=== PATIENT | female | born 1955 | race Caucasian/White ===

== ENCOUNTER 2017-08-04 19:15 | Emergency (ER) | payer MEDICARE ==
[2017-08-04] MEDS ORDERED: PENICILLIN G BENZATHINE 1.2 MILLION UNIT/2 ML DISP.SYRIN IM ONE (19:58)
[2017-08-04] MEDS ORDERED: CARVEDILOL 6.25 MG TABLET PO ONE (19:58)
[2017-08-04] MEDS ORDERED: HYDROCODONE/ACETAMINOPHEN 5-325 MG (6 TAB/ER DISP) PO PRN (20:01)
--- NOTE | 2017-08-04 20:02 | ER Document Report ---
HPI - HPI Patient complains to provider of: Sore throat, nasal congestion Onset: Other - 3 days Onset/Duration: Persistent Quality of pain: Achy Pain Level: 5 Context: Patient presents complaining of sore throat with postnasal drip. Patient does report sinus congestion. Patient denies any fever. Patient does complain of some right-sided ear pain. Patient states she does have a history of hypertension but has not been taking her blood pressure medication for the past several days as she recently had her blood pressure medication adjusted and she does not like the new medication. Patient denies any chest pain headache back pain or visual disturbances. Associated Symptoms: Earache, Rhinnorhea, Sore throat. denies: Chest pain, Headache Exacerbated by: Denies Relieved by: Denies Similar symptoms previously: Yes Recently seen / treated by doctor: No - ROS ROS below otherwise negative: Yes Systems Reviewed and Negative: Yes All other systems reviewed and negative - CONSTITUTIONAL Constitutional: DENIES: Fever, Chills - EENT EENT: REPORTS: Sore Throat, Ear Pain. DENIES: Eye problems - NEURO Neurology: DENIES: Headache - CARDIOVASCULAR Cardiovascular: DENIES: Chest pain - RESPIRATORY Respiratory: DENIES: Trouble Breathing - GASTROINTESTINAL Gastrointestinal: DENIES: Patient vomiting - MUSCULOSKELETAL Musculoskeletal: DENIES: Back Pain - DERM Skin Color: Normal Skin Problems: None Past Medical History - General Information source: Patient - Social History Smoking Status: Never Smoker Chew tobacco use (# tins/day): No Frequency of alcohol use: None Drug Abuse: None Occupation: None Lives with: Family Family History: Reviewed & Not Pertinent Patient has suicidal ideation: No Patient has homicidal ideation: No - Past Medical History Cardiac Medical History: Reports: Hx Hypertension Pulmonary Medical History: Reports: Hx Asthma, Hx COPD Endocrine Medical History: Reports: Hx Diabetes Mellitus Type 2 Renal/ Medical History: Denies: Hx Peritoneal Dialysis Past Surgical History: Reports: Hx Appendectomy, Hx Breast Surgery - biopsy, Hx Tonsillectomy Vertical Provider Document - CONSTITUTIONAL Agree With Documented VS: Yes Exam Limitations: No Limitations General Appearance: WD/WN, No Apparent Distress - INFECTION CONTROL TRAVEL OUTSIDE OF THE [place] IN LAST 30 DAYS: No - HEENT HEENT: Atraumatic, Normocephalic, Pharyngeal Exudate, Pharyngeal Tenderness, Pharyngeal Erythema. negative: Tympanic Membrane Red, Tympanic Membrane Bulging - NECK Neck: Lymphadenopathy-Left, Lymphadenopathy-Right - RESPIRATORY Respiratory: Breath Sounds Normal, No Respiratory Distress, Chest Non-Tender O2 Sat by Pulse Oximetry: 90 - CARDIOVASCULAR Cardiovascular: Regular Rate, Regular Rhythm, No Murmur - BACK Back: Normal Inspection - MUSCULOSKELETAL/EXTREMETIES Musculoskeletal/Extremeties: MAEW - NEURO Level of Consciousness: Awake, Alert, Appropriate Motor/Sensory: No Motor Deficit - DERM Integumentary: Warm, Dry, No Rash Course - Re-evaluation Re-evalutation: 08/04/17 20:00 The patient has been informed that they have hypertension based on a blood pressure reading in the emergency department. I recommend that patient call the primary care provider listed on their discharge instructions or a physician of their choice by this week to arrange follow-up for further evaluation of possible hypertension. Patient does continue hypertensive at discharge although is asymptomatic. Discussed with patient at length importance of compliance with her medication regimen. Patient advised that she can follow-up with primary doctor to have her medications adjusted if she is not liking the side effect profile of the medicines that she is taking. Patient is not symptomatic with her hypertension at this time, additional testing will be deferred. Patient with symptoms concerning for tonsillitis. No concern for tonsillar abscess or potential airway compromise at this time. - Vital Signs Vital signs: Temp Pulse Resp BP Pulse Ox 97.8 F 93 20 194/106 H 90 L 08/04/17 19:21 08/04/17 19:21 08/04/17 19:21 08/04/17 19:21 08/04/17 19:21 Discharge - Discharge Clinical Impression: Tonsillitis, Nasal congestion, Hx of essential hypertension Condition: Stable Disposition: HOME, SELF-CARE Instructions: Antibiotic Shot ([facility]), Oral Narcotic Medication ([facility]), Tonsillitis ([facility]) Additional Instructions: Return immediately for any new or worsening symptoms Followup with your primary care provider, call tomorrow to make a followup appointment Take your blood pressure medication at home as prescribed. Take [id number] Coricidin HBP to help with congestion symptoms use over- the-counter saline nasal spray to help with congestion as well. Forms: Elevated Blood Pressure Referrals: [facility] [Provider Group] - Follow up tomorrow
[2017-08-04 20:29] VITALS: BP 204/85
== END 2017-08-04 20:29 | disposition home or self-care (01) ==
LOC: ER 19:15
DX: J03.90 Acute tonsillitis, unspecified (principal); R09.81 Nasal congestion; I10 Essential (primary) hypertension; J02.9 Acute pharyngitis, unspecified; R09.82 Postnasal drip; Z79.899 Other long term (current) drug therapy
CPT/HCPCS: 99283; A9270 ×2; J0561

== ENCOUNTER 2018-02-14 15:31 | Inpatient (IN) | payer MEDICARE ==
--- NOTE | 2018-02-14 16:39 | ER Document Report ---
ED Medical Screen (RME) - General Chief Complaint: Chest Tightness Stated Complaint: DIFFICULTY BREATHING/CHEST PAIN Time Seen by Provider: 02/14/18 16:31 Notes: Patient says that she has been having difficulty breathing for the past couple of days. She has had a slight cough. Says she cannot lay down because of the shortness of breath. Has a history of COPD and asthma, but has not had a flare of that condition for at least 3 years. She does have an inhaler, but needs to get it refilled. She has had some pressure feeling in the substernal chest region. No vomiting or diarrhea. Has not had any fever. Hysterectomy and cholecystectomy. Lungs no wheezes heard. Rales heard. +1-+2 pitting edema pretibial. TRAVEL OUTSIDE OF THE [place] IN LAST 30 DAYS: No - Related Data Allergies/Adverse Reactions: aspirin Allergy (Verified 02/14/18 15:31) Iodinated Contrast- Oral and IV Dye Allergy (Verified 02/14/18 15:31) Past Medical History - Social History Chew tobacco use (# tins/day): No Frequency of alcohol use: None Drug Abuse: None - Past Medical History Cardiac Medical History: Reports: Hx Hypertension Pulmonary Medical History: Reports: Hx Asthma, Hx COPD Endocrine Medical History: Reports: Hx Diabetes Mellitus Type 2 - under control w/o medication Renal/ Medical History: Denies: Hx Peritoneal Dialysis Past Surgical History: Reports: Hx Appendectomy, Hx Breast Surgery - biopsy, Hx Cholecystectomy, Hx Hysterectomy, Hx Tonsillectomy Physical Exam - Vital signs Vitals: Temp Pulse Resp BP Pulse Ox 98.2 F 82 28 H 215/103 H 84 L 02/14/18 15:57 02/14/18 15:57 02/14/18 15:57 02/14/18 15:57 02/14/18 15:57 Course - Vital Signs Vital signs: Temp Pulse Resp BP Pulse Ox 98.2 F 80 22 H 198/94 H 95 02/14/18 15:57 02/14/18 16:23 02/14/18 16:23 02/14/18 16:23 02/14/18 16:23 Doctor's Discharge - Discharge Referrals: MELVI RUTH [Primary Care Provider] - Follow up as needed
[2018-02-14] MEDS ORDERED: IPRATROPIUM/ALBUTEROL 0.5-2.5 MG/3 ML AMPUL NEB ONE (16:49)
--- NOTE | 2018-02-14 16:56 | RADIOLOGY REPORT (SQ) ---
EXAM DESCRIPTION: CHEST 2 VIEWS COMPLETED DATE/TIME: 02/14/2018 4:47 pm REASON FOR STUDY: Shortness of breath COMPARISON: None. EXAM PARAMETERS: NUMBER OF VIEWS: two views TECHNIQUE: Digital Frontal and Lateral radiographic views of the chest acquired. RADIATION DOSE: NA LIMITATIONS: none FINDINGS: LUNGS AND PLEURA: Prominent vascular and interstitial markings. Small right pleural effus ion -possible small left. MEDIASTINUM AND HILAR STRUCTURES: No masses or contour abnormalities. HEART AND VASCULAR STRUCTURES: Mild cardiomegaly BONES: No acute findings. HARDWARE: None in the chest. OTHER: No other significant finding. IMPRESSION: Congestive heart failure. TECHNICAL DOCUMENTATION: JOB ID: [id number] [employer]- All Rights Reserved Reading location - IP/workstation name: [email or web address]
[2018-02-14 17:12] LABS: ABSOLUTE BASOPHILS # (AUTO) 0.1 10^3/uL (0.0-0.2); ABSOLUTE EOSINOPHILS # (AUTO) 0.1 10^3/uL (0.0-0.6); ABSOLUTE LYMPHOCYTES (AUTO) 1.9 10^3/uL (0.5-4.7); ABSOLUTE MONOCYTES (AUTO) 0.6 10^3/uL (0.1-1.4); ABSOLUTE NEUT (AUTO) 4.4 10^3/uL (1.7-8.2); BASOPHILS % (AUTO) 0.8 % (0-2); EOSINOPHILS % (AUTO) 1.7 % (0-6); HEMATOCRIT 49.7 % (36.0-47.0); HEMOGLOBIN 16.7 g/dL (12.0-15.5); LYMPHOCYTES % (AUTO) 26.9 % (13-45); MEAN CORPUSCULAR HEMOGLOBIN 28.4 pg (27.0-33.4); MEAN CORPUSCULAR HGB CONC 33.6 g/dL (32.0-36.0); MEAN CORPUSCULAR VOLUME 84 fl (80-97); MONOCYTES % (AUTO) 7.9 % (3-13); PLATELET COUNT 157 10^3/uL (150-450); RED BLOOD COUNT 5.89 10^6/uL (3.72-5.28); RED CELL DISTRIBUTION WIDTH 14.8 % (11.5-14.0); SEGMENTED NEUTROPHILS % (AUTO) 62.7 % (42-78); TOTAL CELLS COUNTED % (AUTO) 100 %
[2018-02-14 17:19] LABS: ALANINE AMINOTRANSFERASE 26 U/L (9-52); ALKALINE PHOSPHATASE 86 U/L (38-126); ANION GAP 13 (5-19); ASPARTATE AMINO TRANSFERASE 24 U/L (14-36); BILIRUBIN,DIRECT 0.3 mg/dL (0.0-0.4); BILIRUBIN,TOTAL 0.5 mg/dL (0.2-1.3); BLOOD UREA NITROGEN 20 mg/dL (7-20); CALCIUM 9.9 mg/dL (8.4-10.2); CARBON DIOXIDE 30 mmol/L (22-30); CHLORIDE 102 mmol/L (98-107); GLUCOSE 136 mg/dL (75-110); POTASSIUM 4.1 mmol/L (3.6-5.0); SODIUM 144.7 mmol/L (137-145); TOTAL PROTEIN 7.2 g/dL (6.3-8.2)
[2018-02-14 17:31] LABS: CREATINE KINASE MB 1.22 ng/mL (<4.55)
--- NOTE | 2018-02-14 17:39 | ER Document Report ---
ED Cardiac - General Chief Complaint: Chest Tightness Stated Complaint: DIFFICULTY BREATHING/CHEST PAIN Time Seen by Provider: 02/14/18 16:31 Information source: Patient Notes: Patient is a 62-year-old female that presents today stating over the last 2 days she has had some shortness of breath with exertion. She states she has positive orthopnea. She states some very mild 2 out of 10 nonradiating chest pressure when she walks. Patient has a history of COPD but has not been on oxygen "for years". Patient was satting 84% upon arrival. Patient denies any calf pain or leg swelling. She states she does take a small dose of Lasix daily but states she has never been diagnosed with congestive heart failure. Patient denies any cough, fevers, and states no travel greater than 25 days ago. TRAVEL OUTSIDE OF THE [place] IN LAST 30 DAYS: No - HPI Patient complains to provider of: Shortness of breath Was the onset of pain: Gradual Is the pain a: New problem Chest pain location: Substernal Quality of pain: Other - See above Chest pain radiation location: None Severity now: None Severity at worst: Mild Pain level currently: Denies Chest pain precipitating factors: Physical Exertion Associated symptoms: Other - See above Exacerbated by: Denies Relieved by: Nothing Similar symptoms previously: No Recently seen / treated by doctor: No - Related Data Allergies/Adverse Reactions: aspirin Allergy (Verified 02/14/18 15:31) Iodinated Contrast- Oral and IV Dye Allergy (Verified 02/14/18 15:31) Past Medical History - General Information source: Patient - Social History Smoking Status: Former Smoker Cigarette use (# per day): No Chew tobacco use (# tins/day): No Smoking Education Provided: No Frequency of alcohol use: None Drug Abuse: None Family History: Reviewed & Not Pertinent Patient has suicidal ideation: No Patient has homicidal ideation: No - Past Medical History Cardiac Medical History: Reports: Hx Hypertension Pulmonary Medical History: Reports: Hx Asthma, Hx COPD Endocrine Medical History: Reports: Hx Diabetes Mellitus Type 2 - under control w/o medication Renal/ Medical History: Denies: Hx Peritoneal Dialysis Past Surgical History: Reports: Hx Appendectomy, Hx Breast Surgery - biopsy, Hx Cholecystectomy, Hx Hysterectomy, Hx Tonsillectomy Review of Systems - Review of Systems Constitutional: denies: Fever EENT: denies: Eye discharge, Nose discharge Cardiovascular: denies: Palpitations, Dizziness, Lightheaded Respiratory: Short of breath. denies: Hemoptysis, Wheezing Gastrointestinal: denies: Vomiting Genitourinary: denies: Dysuria Musculoskeletal: denies: Leg swelling Skin: Other - no hives. denies: Rash Neurological/Psychological: Other - no slurred speech -: Yes All other systems reviewed and negative Physical Exam - Vital signs Vitals: Temp Pulse Resp BP Pulse Ox 98.2 F 82 28 H 215/103 H 84 L 02/14/18 15:57 02/14/18 15:57 02/14/18 15:57 02/14/18 15:57 02/14/18 15:57 Notes: Reviewed vital signs and nursing note as charted by RN. CONSTITUTIONAL: Alert and oriented and responds appropriately to questions. Well -appearing; well-nourished HEAD: Normocephalic; atraumatic EYES: PERRL; Conjunctivae clear, sclerae non-icteric ENT: Normal nose; no rhinorrhea NECK: Supple without meningismus; non-tender; no cervical lymphadenopathy, no masses CARD: Regular rate and rhythm; no murmurs, no clicks, no rubs, no gallops; symmetric distal pulses RESP: Normal chest excursion without splinting or tachypnea; breath sounds clear and equal bilaterally; bilateral rales noted ABD/GI: Normal bowel sounds; non-distended; soft, non-tender BACK: The back appears normal and is non-tender to palpation EXT: Normal ROM in all joints; non-tender to palpation; no edema SKIN: Normal color for age and race; no acute lesions noted NEURO: Moves all extremities equally; Motor and sensory function intact PSYCH: The patient's mood and manner are appropriate. Grooming and personal hygiene are appropriate. Course - Re-evaluation Re-evalutation: 02/14/18 17:39 Given the above history and physical examination, we will obtain basic labs, cardiac labs, BNP, x-ray of the chest, and reassess. Patient was provided an albuterol inhaler prior to my arrival. I do not auscultate any wheezing. I do auscultate Dayanna. Patient has no calf pain or leg swelling. Only some chest discomfort when she walks. Initial oxygen saturation is recorded. I do believe pulmonary embolism and dissection to be unlikely. 02/14/18 18:08 Labs as recorded. BNP is recorded. X-ray is recorded. Given the above history and physical examination, I do believe that the patient most likely requires admission with IV Lasix. - Vital Signs Vital signs: Temp Pulse Resp BP Pulse Ox 98.2 F 80 22 H 198/94 H 95 02/14/18 15:57 02/14/18 16:23 02/14/18 16:23 02/14/18 16:23 02/14/18 16:23 - Laboratory Result Diagrams: 02/14/18 16:55 02/14/18 16:55 Laboratory results interpreted by me: 02/14/18 02/14/18 02/14/18 16:55 16:55 16:55 RBC 5.89 H Hgb 16.7 H Hct 49.7 H RDW 14.8 H Glucose 136 H NT-Pro-B Natriuret Pep 906 H Discharge - Discharge Clinical Impression: Hypoxia Dyspnea Qualifiers: Dyspnea type: unspecified Qualified Code(s): R06.00 - Dyspnea, unspecified Acute congestive heart failure Qualifiers: Heart failure type: unspecified Qualified Code(s): I50.9 - Heart failure, unspecified Condition: Fair Disposition: ADMITTED INPATIENT Admitting Provider: Hospitalist Unit Admitted: Telemetry Referrals: MELVI RUTH [Primary Care Provider] - Follow up as needed
[2018-02-14 17:54] LABS: TROPONIN I 0.041 ng/mL
[2018-02-14] MEDS ORDERED: FUROSEMIDE INJ/PF 40 MG/4 ML SDV IV ONE (18:11)
[2018-02-14] MEDS ORDERED: DEXTROSE 50%-WATER 25 GM/50 ML DISP.SYRIN IV PRN ×2 (18:30)
[2018-02-14] MEDS ORDERED: GLUCAGON,HUMAN RECOMB 1 MG INJ IM PRN (18:30)
[2018-02-14] MEDS ORDERED: DEXTROSE 40% GEL 15 GM TUBE PO PRN ×2 (18:30)
--- NOTE | 2018-02-14 18:53 | PDOC H&P ---
History of Present Illness Admission Date/PCP: 02/14/18 18:19 MELVI RUTH History of Present Illness: REMINGTON SILVA is a 62 year old female with history of hypertension and diabetes, neither which she takes anything for, who had sudden onset of shortness of breath about 3 days ago. She denies any chest pain. She says that she has been taken Lasix for a while because she gets swelling in her legs but she does not know what the source of the swelling is. She has never had a heart attack that she knows of. She has never had a stress test or cardiac catheterization or any heart surgery. She was unable to lay down flat and had to sit propped up in order to sleep. When she came to the emergency department her SPO2 was 87% on room air. Her BMP was a little elevated and she had findings of pulmonary edema on her chest x-ray. She has not been running a fever. She has not had a cough. She has also been very hypertensive with a systolic near 200 on her initial presentation. Past Medical History Cardiac Medical History: Reports: Hypertension Pulmonary Medical History: Reports: Asthma, Chronic Obstructive Pulmonary Disease (COPD) Endocrine Medical History: Reports: Diabetes Mellitus Type 2 - under control w/ o medication Past Surgical History Past Surgical History: Reports: Appendectomy, Cholecystectomy, Hysterectomy, Tonsillectomy Social History Information Source: Patient Lives with: Alone Smoking Status: Former Smoker Frequency of Alcohol Use: Rare Hx Recreational Drug Use: No Family History Family History: Reviewed & Not Pertinent Parental Family History Reviewed: Yes - Non-contributory Children Family History Reviewed: Yes - Noncontributory Sibling(s) Family History Reviewed.: Yes - Noncontributory Medication/Allergy Allergies/Adverse Reactions: aspirin Allergy (Verified 02/14/18 15:31) Iodinated Contrast- Oral and IV Dye Allergy (Verified 02/14/18 15:31) Review of Systems All systems: reviewed and no additional remarkable complaints except as stated - 10 point review of systems was conducted with the patient was negative except as noted in the HPI Physical Exam Vital Signs: Temp Pulse Resp BP Pulse Ox 98.2 F 80 22 H 198/94 H 95 02/14/18 15:57 02/14/18 16:23 02/14/18 16:23 02/14/18 16:23 02/14/18 16:23 General appearance: PRESENT: no acute distress, cooperative, morbidly obese Head exam: PRESENT: atraumatic, normocephalic Eye exam: PRESENT: conjunctiva pink, EOMI, PERRLA. ABSENT: scleral icterus Ear exam: PRESENT: normal external ear exam Mouth exam: PRESENT: moist, neck supple Throat exam: ABSENT: tonsillar erythema, tonsillar exudate, tonsillogmegaly Neck exam: PRESENT: full ROM. ABSENT: carotid bruit, JVD - Difficult to tell due to her body habitus, lymphadenopathy, tenderness, thyromegaly Respiratory exam: PRESENT: crackles - Bibasilar, unlabored. ABSENT: accessory muscle use, chest wall tenderness, prolonged expiratory phas, rhonchi, tachypnea , wheezes Cardiovascular exam: PRESENT: RRR. ABSENT: diastolic murmur, systolic murmur Pulses: ABSENT: normal carotid pulses, normal radial pulses Vascular exam: PRESENT: normal capillary refill GI/Abdominal exam: PRESENT: normal bowel sounds, soft. ABSENT: ascites, guarding, mass, rebound, tenderness Extremities exam: PRESENT: +1 edema - Pretibial areas bilaterally. ABSENT: clubbing, pedal edema Musculoskeletal exam: PRESENT: ambulatory, normal inspection. ABSENT: deformity Neurological exam: PRESENT: alert, awake, oriented to person, oriented to place , oriented to time, CN II-XII grossly intact Psychiatric exam: PRESENT: appropriate affect, normal mood Skin exam: PRESENT: dry, warm Results Impressions: Chest X-Ray 02/14/18 16:37 IMPRESSION: Congestive heart failure. Assessment & Plan - Diagnosis (1) Acute congestive heart failure Qualifiers: Heart failure type: unspecified Qualified Code(s): I50.9 - Heart failure, unspecified Is this a current diagnosis for this admission?: Yes Plan: She has no prior history. We will going to put her on some IV Lasix. We will put her on an AILYN inhibitor and a beta-abigail. We will get an echocardiogram. We will trend her troponins. We will keep on a cardiac rn. Supplemental O2 as needed to keep her SPO2 greater than 90%. She would probably benefit from a stress test as well once her acute issues are somewhat more resolved. Depending on what we find, she may need a cardiology consultation. (2) Malignant hypertensive urgency Is this a current diagnosis for this admission?: Yes Plan: Were giving her a couple of different blood pressure medications to try to get her pressure down some. I suspect she has had uncontrolled pressure for a while. This alone could be the reason for her acute heart failure. (3) Acute hypoxemic respiratory failure Is this a current diagnosis for this admission?: Yes Plan: Secondary to #1. Treatment as noted above. - Time Time Spent: 50 to 70 Minutes - Inpatient Certification Based on my medical assessment, after consideration of the patient's comorbidities, presenting symptoms, or acuity I expect that the services needed warrant INPATIENT care.: Yes I certify that my determination is in accordance with my understanding of Medicare's requirements for reasonable and necessary INPATIENT services [42 CFR 412.3e].: Yes Medical Necessity: Need Close Monitoring Due to Risk of Patient Decompensation, Need For Continuous Telemetry Monitoring, Risk of Diagnosis Which Will Require Inpatient Eval/Care/Monitoring
[2018-02-14] MEDS: NITROGLYCERIN 2% OINTMENT 1 GM PACKET TP SCH (20:30)
[2018-02-14] MEDS: CARVEDILOL 6.25 MG TABLET PO SCH ×2 (20:31→22:29)
[2018-02-14] MEDS: LISINOPRIL 10 MG TABLET PO SCH (20:31)
[2018-02-14 21:06] LABS: APPEARANCE,URINE CLEAR; BILIRUBIN,URINE NEGATIVE (NEGATIVE); COLOR,URINE COLORLESS; GLUCOSE, URINE NEGATIVE (NEGATIVE); KETONES,URINE NEGATIVE (NEGATIVE); LEUKOCYTE ESTERASE,URINE TRACE (NEGATIVE); NITRITE,URINE NEGATIVE (NEGATIVE); PROTEIN,URINE NEGATIVE (NEGATIVE); URINE SPECIFIC GRAVITY 1.004; UROBILINOGEN,URINE NEGATIVE mg/dL (<2.0)
[2018-02-14] MEDS: FUROSEMIDE INJ/PF 40 MG/4 ML SDV IV SCH (21:44)
--- NOTE | 2018-02-15 00:18 | EKG REPORT ---
SEVERITY:- BORDERLINE ECG - SINUS RHYTHM BORDERLINE REPOL ABNORMALITY, DIFFUSE LEADS BORDERLINE PROLONGED QT INTERVAL : Confirmed by: Bouchra Mae MD 15-Feb-2018 00:17:37
[2018-02-15] MEDS: NITROGLYCERIN 2% OINTMENT 1 GM PACKET TP SCH ×4 (02:12→17:20)
[2018-02-15 05:54] LABS: HEMATOCRIT 44.7 % (36.0-47.0); HEMOGLOBIN 15.1 g/dL (12.0-15.5); MEAN CORPUSCULAR HEMOGLOBIN 28.6 pg (27.0-33.4); MEAN CORPUSCULAR HGB CONC 33.7 g/dL (32.0-36.0); MEAN CORPUSCULAR VOLUME 85 fl (80-97); PLATELET COUNT 147 10^3/uL (150-450); RED BLOOD COUNT 5.28 10^6/uL (3.72-5.28); WHITE BLOOD COUNT 6.4 10^3/uL (4.0-10.5)
[2018-02-15 06:15] LABS: ANION GAP 9 (5-19); BLOOD UREA NITROGEN 21 mg/dL (7-20); CALCIUM 9.3 mg/dL (8.4-10.2); CARBON DIOXIDE 39 mmol/L (22-30); CHLORIDE 97 mmol/L (98-107); GLUCOSE 160 mg/dL (75-110); POTASSIUM 3.7 mmol/L (3.6-5.0); SODIUM 144.6 mmol/L (137-145)
[2018-02-15] MEDS: LANSOPRAZOLE 30 MG TAB.RAP.DR PO SCH (06:38)
[2018-02-15] MEDS: INSULIN REG, HUMAN 100 UNIT/ML 3 ML VIAL (PYX) SUBCUT PRN ×3 (07:51→21:39)
[2018-02-15] MEDS: LISINOPRIL 10 MG TABLET PO SCH (09:14)
[2018-02-15] MEDS: ENOXAPARIN SODIUM INJ 40 MG/0.4 ML DISP.SYRIN SUBCUT SCH (09:14)
[2018-02-15] MEDS: CARVEDILOL 6.25 MG TABLET PO SCH ×2 (09:14→21:41)
[2018-02-15] MEDS: FUROSEMIDE INJ/PF 40 MG/4 ML SDV IV SCH ×2 (09:14→21:42)
[2018-02-15 11:33] LABS: TROPONIN I 0.028 ng/mL
[2018-02-15] MEDS: ACETAMINOPHEN 325 MG TABLET PO PRN ×2 (17:41→21:41)
--- NOTE | 2018-02-15 19:08 | PDOC PROGRESS REPORT ---
Subjective Progress Note for:: 02/15/18 Subjective:: No adverse events overnight. No new complaints. Says her breathing feels better. She says she has not had her echocardiogram yet. No chest pain. No palpitations. Reason For Visit: HEART FAILURE Physical Exam Vital Signs: Temp Pulse Resp BP Pulse Ox 97.6 F 61 20 129/65 H 92 02/15/18 11:13 02/15/18 14:00 02/15/18 11:13 02/15/18 11:13 02/15/18 17:55 Pulse Oximeter Continuous Start: 02/14/18 18: 32 Freq: RTQ4 Status: Active Document 02/15/18 17:55 HCR (Rec: 02/15/18 17:55 HCR [id number]) Pulse Oximetry Assessment Oxygen Saturation (92-100) 92 Oxygen Delivery Method Room Air Fraction of Inspired Oxygen (FIO2) 21 Equipment Usage Equipment Standby Continuous SpO2 Machine # 8 Intake & Output 02/14/18 02/15/18 02/16/18 06:59 06:59 06:59 Intake Total 1734 Balance 1734 Weight 87.9 kg General appearance: PRESENT: no acute distress, cooperative, disheveled, morbidly obese Respiratory exam: PRESENT: accessory muscle use, decreased breath sounds, unlabored. ABSENT: rales, rhonchi, wheezes Cardiovascular exam: PRESENT: RRR. ABSENT: systolic murmur GI/Abdominal exam: PRESENT: normal bowel sounds, soft. ABSENT: guarding, rebound, tenderness Extremities exam: PRESENT: pedal edema, +1 edema Musculoskeletal exam: PRESENT: ambulatory, normal inspection. ABSENT: deformity Neurological exam: PRESENT: alert, awake, oriented to person, oriented to place , oriented to time Psychiatric exam: PRESENT: appropriate affect, normal mood Skin exam: PRESENT: dry, warm Results Laboratory Results: 02/15/18 05:03 02/15/18 05:03 02/14/18 02/15/18 02/15/18 20:50 05:03 05:03 WBC 6.4 RBC 5.28 Hgb 15.1 Hct 44.7 MCV 85 MCH 28.6 MCHC 33.7 RDW 15.0 H Plt Count 147 L Sodium 144.6 Potassium 3.7 Chloride 97 L Carbon Dioxide 39 H Anion Gap 9 BUN 21 H Creatinine 0.72 Est GFR ( Amer) > 60 Est GFR (Non-Af Amer) > 60 Glucose 160 H Calcium 9.3 Urine Color COLORLESS Urine Appearance CLEAR Urine pH 5.0 Ur Specific Fajardo 1.004 Urine Protein NEGATIVE Urine Glucose (UA) NEGATIVE Urine Ketones NEGATIVE Urine Blood SMALL H Urine Nitrite NEGATIVE Ur Leukocyte Esterase TRACE H Urine WBC (Auto) 5 Urine RBC (Auto) 1 02/14/18 02/15/18 02/15/18 22:49 05:03 10:45 Troponin I 0.052 0.037 0.028 NT-Pro-B Natriuret Pep 684 Impressions: Chest X-Ray 02/14/18 16:37 IMPRESSION: Congestive heart failure. Assessment & Plan - Diagnosis (1) Acute congestive heart failure Qualifiers: Heart failure type: unspecified Qualified Code(s): I50.9 - Heart failure, unspecified Is this a current diagnosis for this admission?: Yes Plan: She has no prior history. Echocardiogram is pending. Responding well to IV Lasix. Troponins have been negative. Depending on the results of the echocardiogram, she may benefit from a stress test before she leaves the hospital. She is on a beta-abigail and AILYN inhibitor. (2) Malignant hypertensive urgency Is this a current diagnosis for this admission?: Yes Plan: Blood pressure has improved medical therapy. (3) Acute hypoxemic respiratory failure Is this a current diagnosis for this admission?: Yes Plan: Secondary to #1. Treatment as noted above. - Time Time Spent with patient: 15-24 minutes
[2018-02-16] MEDS: NITROGLYCERIN 2% OINTMENT 1 GM PACKET TP SCH ×5 (02:17→23:50)
[2018-02-16 06:07] LABS: HEMOGLOBIN 14.6 g/dL (12.0-15.5); MEAN CORPUSCULAR HEMOGLOBIN 28.3 pg (27.0-33.4); MEAN CORPUSCULAR HGB CONC 33.3 g/dL (32.0-36.0); MEAN CORPUSCULAR VOLUME 85 fl (80-97); PLATELET COUNT 142 10^3/uL (150-450); RED BLOOD COUNT 5.16 10^6/uL (3.72-5.28); RED CELL DISTRIBUTION WIDTH 15.1 % (11.5-14.0); WHITE BLOOD COUNT 6.4 10^3/uL (4.0-10.5)
[2018-02-16] MEDS: LANSOPRAZOLE 30 MG TAB.RAP.DR PO SCH (06:35)
[2018-02-16 06:40] LABS: ANION GAP 11 (5-19); BLOOD UREA NITROGEN 31 mg/dL (7-20); CALCIUM 9.2 mg/dL (8.4-10.2); CARBON DIOXIDE 37 mmol/L (22-30); CHLORIDE 94 mmol/L (98-107); GLUCOSE 169 mg/dL (75-110); POTASSIUM 3.9 mmol/L (3.6-5.0); SODIUM 142.1 mmol/L (137-145)
[2018-02-16] MEDS: INSULIN REG, HUMAN 100 UNIT/ML 3 ML VIAL (PYX) SUBCUT PRN ×3 (07:34→22:43)
[2018-02-16] MEDS: FUROSEMIDE 40 MG TABLET PO SCH (09:30)
[2018-02-16] MEDS: ENOXAPARIN SODIUM INJ 40 MG/0.4 ML DISP.SYRIN SUBCUT SCH (09:31)
[2018-02-16] MEDS: LISINOPRIL 10 MG TABLET PO SCH (09:31)
[2018-02-16] MEDS: CARVEDILOL 6.25 MG TABLET PO SCH ×2 (09:33→21:37)
--- NOTE | 2018-02-16 16:35 | PDOC PROGRESS REPORT ---
Subjective Progress Note for:: 02/16/18 Subjective:: No adverse events overnight. No new complaints. Says her breathing feels better. She says she has not had her echocardiogram yet. No chest pain. No palpitations. She is on the schedule to have her echocardiogram today. She says that the swelling in her legs has gone away. She said overall she feels a lot better. Reason For Visit: HEART FAILURE Physical Exam Vital Signs: Temp Pulse Resp BP Pulse Ox 97.5 F 65 18 140/46 H 96 02/16/18 15:52 02/16/18 15:52 02/16/18 15:52 02/16/18 15:52 02/16/18 15:52 Pulse Oximeter Continuous Start: 02/14/18 18: 32 Freq: RTQ4 Status: Active Document 02/16/18 12:00 [facility] (Rec: 02/16/18 13:05 [facility] [id number]) Pulse Oximetry Assessment Oxygen Saturation (92-100) 96 Oxygen Flow Rate (L/min) 3 Oxygen Delivery Method Nasal Cannula Fraction of Inspired Oxygen (FIO2) 32 Equipment Usage Equipment in Use Continuous SpO2 Machine # 8 Intake & Output 02/15/18 02/16/18 02/17/18 06:59 06:59 06:59 Intake Total 2033 Balance 2033 Weight 87.9 kg 87.8 kg General appearance: PRESENT: no acute distress, cooperative, morbidly obese Respiratory exam: PRESENT: clear to auscultation wilfred, unlabored. ABSENT: accessory muscle use, rales, rhonchi, wheezes Cardiovascular exam: PRESENT: RRR. ABSENT: systolic murmur GI/Abdominal exam: PRESENT: normal bowel sounds, soft. ABSENT: guarding, rebound, tenderness Extremities exam: ABSENT: pedal edema Musculoskeletal exam: PRESENT: ambulatory, normal inspection. ABSENT: deformity Neurological exam: PRESENT: alert, awake, oriented to person, oriented to place , oriented to time, oriented to situation Psychiatric exam: PRESENT: appropriate affect, normal mood Skin exam: PRESENT: dry, warm Results Laboratory Results: 02/16/18 05:04 02/16/18 05:04 02/16/18 02/16/18 05:04 05:04 WBC 6.4 RBC 5.16 Hgb 14.6 Hct 44.0 MCV 85 MCH 28.3 MCHC 33.3 RDW 15.1 H Plt Count 142 L Sodium 142.1 Potassium 3.9 Chloride 94 L Carbon Dioxide 37 H Anion Gap 11 BUN 31 H Creatinine 0.83 Est GFR ( Amer) > 60 Est GFR (Non-Af Amer) > 60 Glucose 169 H Calcium 9.2 02/14/18 02/15/18 02/15/18 22:49 05:03 10:45 Troponin I 0.052 0.037 0.028 NT-Pro-B Natriuret Pep 684 02/16/18 05:04 Troponin I NT-Pro-B Natriuret Pep 183 Impressions: Chest X-Ray 02/14/18 16:37 IMPRESSION: Congestive heart failure. Assessment & Plan - Diagnosis (1) Acute congestive heart failure Qualifiers: Heart failure type: unspecified Qualified Code(s): I50.9 - Heart failure, unspecified Is this a current diagnosis for this admission?: Yes Plan: She has no prior history. Echocardiogram seems to have now been done and the report is pending. Switching to oral Lasix today. Troponins have been negative. Depending on the results of the echocardiogram, she may benefit from a stress test before she leaves the hospital. She is on a beta-abigail and AILYN inhibitor. (2) Malignant hypertensive urgency Is this a current diagnosis for this admission?: Yes Plan: Blood pressure has improved medical therapy. (3) Acute hypoxemic respiratory failure Is this a current diagnosis for this admission?: Yes Plan: Secondary to #1. Treatment as noted above. We will try to wean her off oxygen today to see how her saturations tolerate. - Time Time Spent with patient: 15-24 minutes
[2018-02-17 05:06] LABS: HEMATOCRIT 43.6 % (36.0-47.0); HEMOGLOBIN 14.8 g/dL (12.0-15.5); MEAN CORPUSCULAR HEMOGLOBIN 28.6 pg (27.0-33.4); MEAN CORPUSCULAR HGB CONC 33.9 g/dL (32.0-36.0); MEAN CORPUSCULAR VOLUME 84 fl (80-97); PLATELET COUNT 138 10^3/uL (150-450); RED BLOOD COUNT 5.17 10^6/uL (3.72-5.28); RED CELL DISTRIBUTION WIDTH 14.7 % (11.5-14.0); WHITE BLOOD COUNT 7.2 10^3/uL (4.0-10.5)
[2018-02-17] MEDS: NITROGLYCERIN 2% OINTMENT 1 GM PACKET TP SCH ×3 (05:20→19:40)
[2018-02-17] MEDS: LANSOPRAZOLE 30 MG TAB.RAP.DR PO SCH (05:22)
[2018-02-17 05:34] LABS: ANION GAP 12 (5-19); BLOOD UREA NITROGEN 35 mg/dL (7-20); CALCIUM 8.9 mg/dL (8.4-10.2); CARBON DIOXIDE 35 mmol/L (22-30); CHLORIDE 95 mmol/L (98-107); GLUCOSE 142 mg/dL (75-110); POTASSIUM 3.7 mmol/L (3.6-5.0)
--- NOTE | 2018-02-17 09:47 | XCELERA REPORT ---
[address] [address] Transthoracic Echocardiogram Report Name: REMINGTON SILVA V Age: 62 yrs Gender: Female : 1955 Patient Status: Inpatient Patient Location: [address] [place] [address] Study Date: 02/16/2018 03:07 PM Procedure: A complete two-dimensional transthoracic echocardiogram was performed (2D, M-mode, spectral and color flow Doppler). The study was technically difficult with many images being suboptimal in quality. Reason For Study: acute chf Ordering Physician: ARIC CHANDLER Performed By: Juanita Reynolds Interpretation Summary Left ventricular systolic function is mild to moderately reduced. The Ejection Fraction estimate is 40-45% There is mild concentric left ventricular hypertrophy. The left ventricle is grossly normal size. Doppler measurements suggest pseudonormalized left ventricular relaxation, which is associated with grade II/IV or mild to moderate diastolic dysfunction Wall motion cannot be accurately commented on, but no definite regional wall motion abnormalities noted. The right ventricular systolic function is normal. The right atrium is normal in size The left atrial size is normal. There is a trace amount of mitral regurgitation There is no mitral valve stenosis. There is no aortic valve stenosis No aortic regurgitation is present. There is no tricuspid stenosis. There is a trace amount of tricuspid regurgitation The aortic root is not well visualized but is probably normal size. The inferior vena cava was not well visualized There is no pericardial effusion. MMode/2D Measurements & Calculations RVDd: 3.1 cm LVIDd: 5.8 cmFS: 19.0 % Ao root diam: 2.7 cm IVSd: 1.1 cm LVIDs: 4.7 cmEDV(Teich): 169.5 ml Ao root area: 5.9 cm2 LVPWd: 1.3 cmESV(Teich): 104.0 ml EF(Teich): 38.7 % LVOT diam: 1.5 cm LVOT area: 1.7 cm2 Doppler Measurements & Calculations MV E max desmond: MV dec slope: Ao V2 max: LV V1 max P.8 cm/sec 124.8 cm/sec 1.4 mmHg MV A max desmond: 181.7 cm/sec2 Ao max PG: LV V1 max: 73.4 cm/sec MV dec time: 6.3 mmHg 60.0 cm/sec MV E/A: 0.64 0.26 sec JOSE(V,D): 0.83 cm2 PA V2 max: 94.6 cm/sec PA max P.6 mmHg Left Ventricle The left ventricle is grossly normal size. There is mild concentric left ventricular hypertrophy. Left ventricular systolic function is mild to moderately reduced. The Ejection Fraction estimate is 40-45%. Doppler measurements suggest pseudonormalized left ventricular relaxation, which is associated with grade II/IV or mild to moderate diastolic dysfunction. Wall motion cannot be accurately commented on, but no definite regional wall motion abnormalities noted. Right Ventricle The right ventricle is grossly normal size. There is normal right ventricular wall thickness. The right ventricular systolic function is normal. Atria The right atrium is normal in size. The left atrial size is normal. Interarterial septum not well visualized and not well dopplered. Cannot comment on ASD/PFO presence. Mitral Valve The mitral valve leaflets are sclerotic, but show no functional abnormalities. There is no mitral valve stenosis. There is a trace amount of mitral regurgitation. Aortic Valve The aortic valve is not well visualized secondary to technical limitations. There is no aortic valve stenosis. No aortic regurgitation is present. Tricuspid Valve The tricuspid valve is not well visualized, but is grossly normal. There is no tricuspid stenosis. There is a trace amount of tricuspid regurgitation. Pulmonic Valve The pulmonic valve is not well visualized. Great Vessels The aortic root is not well visualized but is probably normal size. The inferior vena cava was not well visualized. Effusions There is no pericardial effusion. : ARIC CHANDLER > Ev Johnson
[2018-02-17] MEDS: FUROSEMIDE 40 MG TABLET PO SCH (11:08)
[2018-02-17] MEDS: LISINOPRIL 10 MG TABLET PO SCH (11:09)
[2018-02-17] MEDS: CARVEDILOL 6.25 MG TABLET PO SCH ×2 (11:10→22:37)
[2018-02-17] MEDS: ENOXAPARIN SODIUM INJ 40 MG/0.4 ML DISP.SYRIN SUBCUT SCH (11:10)
[2018-02-17] MEDS: INSULIN REG, HUMAN 100 UNIT/ML 3 ML VIAL (PYX) SUBCUT PRN (16:18)
--- NOTE | 2018-02-17 17:12 | PDOC PROGRESS REPORT ---
Subjective Progress Note for:: 02/17/18 Subjective:: No adverse events overnight. No new complaints. Says her breathing feels better. She was standing up with the oxygen on looking out her window and her oxygen levels dropped to the low 80s. When she sat down after a minute they came up to the mid 90s. Reason For Visit: HEART FAILURE Physical Exam Vital Signs: Temp Pulse Resp BP Pulse Ox 98.2 F 61 20 154/54 H 93 02/17/18 11:38 02/17/18 14:00 02/17/18 11:38 02/17/18 11:38 02/17/18 15:36 Pulse Oximeter Continuous Start: 02/14/18 18: 32 Freq: RTQ4 Status: Active Document 02/17/18 15:36 [facility] (Rec: 02/17/18 15:36 [facility] [id number]) Pulse Oximetry Assessment Oxygen Saturation (92-100) 93 Oxygen Flow Rate (L/min) 2 Oxygen Delivery Method Nasal Cannula Fraction of Inspired Oxygen (FIO2) 28 Equipment Usage Equipment in Use Continuous SpO2 Machine # 8 Intake & Output 02/16/18 02/17/18 02/18/18 06:59 06:59 06:59 Intake Total 2033 1020 503 Balance 2033 1020 503 Weight 87.8 kg 87.5 kg General appearance: PRESENT: no acute distress, cooperative, morbidly obese Respiratory exam: PRESENT: clear to auscultation wilfred, unlabored. ABSENT: accessory muscle use, rales, rhonchi, wheezes Cardiovascular exam: PRESENT: RRR. ABSENT: systolic murmur GI/Abdominal exam: PRESENT: normal bowel sounds, soft. ABSENT: guarding, rebound, tenderness Extremities exam: ABSENT: pedal edema Musculoskeletal exam: PRESENT: ambulatory, normal inspection. ABSENT: deformity Neurological exam: PRESENT: alert, awake, oriented to person, oriented to place , oriented to time, oriented to situation Psychiatric exam: PRESENT: appropriate affect, normal mood Skin exam: PRESENT: dry, warm Results Laboratory Results: 02/17/18 03:51 02/17/18 03:51 02/17/18 02/17/18 03:51 03:51 WBC 7.2 RBC 5.17 Hgb 14.8 Hct 43.6 MCV 84 MCH 28.6 MCHC 33.9 RDW 14.7 H Plt Count 138 L Sodium 142.0 Potassium 3.7 Chloride 95 L Carbon Dioxide 35 H Anion Gap 12 BUN 35 H Creatinine 0.74 Est GFR ( Amer) > 60 Est GFR (Non-Af Amer) > 60 Glucose 142 H Calcium 8.9 02/14/18 02/15/18 02/15/18 22:49 05:03 10:45 Troponin I 0.052 0.037 0.028 NT-Pro-B Natriuret Pep 684 02/16/18 02/17/18 05:04 03:51 Troponin I NT-Pro-B Natriuret Pep 183 83 Impressions: Chest X-Ray 02/14/18 16:37 IMPRESSION: Congestive heart failure. Assessment & Plan - Diagnosis (1) Acute congestive heart failure Qualifiers: Heart failure type: systolic Qualified Code(s): I50.21 - Acute systolic ( congestive) heart failure Is this a current diagnosis for this admission?: Yes Plan: Her echocardiogram shows an EF of 40-45% with grade 2 diastolic dysfunction. She has been switched over to oral Lasix. Cardiology has been consulted and a stress test is being planned for tomorrow. (2) Malignant hypertensive urgency Is this a current diagnosis for this admission?: Yes Plan: Blood pressure has improved medical therapy. (3) Acute hypoxemic respiratory failure Is this a current diagnosis for this admission?: Yes Plan: Secondary to #1. Treatment as noted above. She may need oxygen when she goes home because while she was standing looking out the window on oxygen, her SPO2 was 82%. - Time Time Spent with patient: 15-24 minutes
--- NOTE | 2018-02-17 20:08 | PDOC CONSULTATION ---
Consultation Consult Date: 02/17/18 Attending physician:: LETI WYNN Consult reason:: Congestive heart failure History of Present Illness Admission Date/PCP: 02/14/18 18:19 MELVI RUTH Patient complains of: Shortness of breath and pedal edema History of Present Illness: REMINGTON SILVA is a 62 year old female with history of hypertension and diabetes, neither which she takes anything for, who had sudden onset of shortness of breath about 3 days ago. She denies any chest pain. She says that she has been taken Lasix for a while because she gets swelling in her legs but she does not know what the source of the swelling is. She has never had a heart attack that she knows of. She has never had a stress test or cardiac catheterization or any heart surgery. She was unable to lay down flat and had to sit propped up in order to sleep. When she came to the emergency department her SPO2 was 87% on room air. Her BMP was a little elevated and she had findings of pulmonary edema on her chest x-ray. She has not been running a fever. She has not had a cough. She has also been very hypertensive with a systolic near 200 on her initial presentation. This history obtained by the hospitalist was reviewed and confirmed. Patient claims that she is under considerable emotional stress because of family issues. She has not been able to comply with medication or dietary restrictions. Patient denied any chest pains. Patient denied any sustained palpitations, syncope or near syncope. Past Medical History Cardiac Medical History: Reports: Hypertension Pulmonary Medical History: Reports: Asthma, Chronic Obstructive Pulmonary Disease (COPD) Endocrine Medical History: Reports: Diabetes Mellitus Type 2 - under control w/ o medication Past Surgical History Past Surgical History: Reports: Appendectomy, Cholecystectomy, Hysterectomy, Tonsillectomy Social History Information Source: Patient Lives with: Alone Smoking Status: Former Smoker Last Time Smoked: 20 Frequency of Alcohol Use: Occasional Hx Recreational Drug Use: No Drugs: None Hx Prescription Drug Abuse: No - Advance Directive Resuscitation Status: Full Code Surrogate healthcare decision maker:: Patient's son is the surrogate decision-maker, Yeyo Family History Family History: DM, Hypertension Parental Family History Reviewed: Yes Children Family History Reviewed: Yes Sibling(s) Family History Reviewed.: Yes Medication/Allergy Home Medications: Albuterol Sulfate [Ventolin Hfa] 1 puff IH PRN PRN 02/14/18 Furosemide [Lasix 40 mg Tablet] 40 mg PO QAM 02/14/18 Allergies/Adverse Reactions: aspirin Allergy (Verified 02/14/18 21:23) Iodinated Contrast- Oral and IV Dye Allergy (Verified 02/14/18 21:23) Review of Systems Review of Systems: Please see history of present illness and past medical history as wall. Constitutional: No fever or chills reported. Head : No recent chronic headaches, recent head injury. Eyes: No recent eye pain, diplopia, redness, discharge, acute visual changes. Ears: No recent chronic ear pain, acute hearing loss, ear discharge. Oral cavity: No recent ulcerations, bleeding, oral cavity discomfort. Neck: No recent acute neck pain reported. Hematologic: No recent easy bruising or bleeding. Lymphatic: No recent lymph node enlargement reported. Cardiovascular system review: See history of present illness. Respiratory system review: No hemoptysis or blood clots in the lungs reported. Mild Shortness of breath on exertion Gastrointestinal system review: Negative for any recent acute hematemesis, melena. Genitourinary system review: No recent acute or chronic hematuria, flank pain, UTI etc. reported. Skin system review: Negative for any recent abnormal bruising, no rash, no pruritus reported. Neurologic: No prior history of strokes, mini strokes, seizure disorder. Psychologic: No history of major psychosis or major depression reported. Musculoskeletal: Minor aches and pains reported. No acute joint swelling reported. Endocrine: No recent polyuria, polydipsia, recent heat or cold intolerance. Physical Exam Vital Signs: Temp Pulse Resp BP Pulse Ox 97.5 F 55 L 20 130/45 H 93 02/17/18 15:26 02/17/18 15:26 02/17/18 15:26 02/17/18 15:26 02/17/18 19:27 Pulse Oximeter Continuous Start: 02/14/18 18: 32 Freq: RTQ4 Status: Active Document 02/17/18 19:27 [facility] (Rec: 02/17/18 19:28 [facility] [id number]) Pulse Oximetry Assessment Oxygen Saturation (92-100) 93 Oxygen Flow Rate (L/min) 2 Oxygen Delivery Method Nasal Cannula Fraction of Inspired Oxygen (FIO2) 28 Equipment Usage Equipment in Use Continuous SpO2 Machine # 8 Intake & Output 07/02/17/18 02/18/18 06:59 06:59 06:59 Intake Total 2033 1020 503 Balance 2033 1020 503 Weight 87.8 kg 87.5 kg Exam: GENERAL: well-nourished and in no acute distress. Alert and oriented x3 HEAD: Atraumatic, normocephalic. EYES: Pupils equal round and reactive to light, extraocular movements intact, sclera anicteric, conjunctiva are normal. ENT: TMs normal, nares patent, oropharynx clear without exudates. Moist mucous membranes. No oral ulcerations or bleeding gums noted NECK: supple without lymphadenopathy. Trachea is central. No cervical or axillary lymphadenopathy noted. Carotids are 2+, JVD WNL LUNGS: Respiration seems nonlabored, no significant accessory muscle action noted. Few bibasilar crackles are noted. No wheezes rales or rhonchi noted. No significant dullness noted on percussion. CHEST: Palpation of the chest wall shows no significant chest wall tenderness. 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 ABDOMEN: Soft, no significant tenderness appreciated, normoactive bowel sounds. No guarding, no rebound. No rigidity noted . No masses appreciated. EXTREMITIES: Pedal pulses are 1-2+, no calf tenderness noted. No clubbing or cyanosis. 1+ pedal edema noted NEUROLOGICAL: Focused neurological exam showed no significant neurologic deficit. Normal speech, no focal weakness appreciated. PSYCH: Normal mood, normal affect. Judgment and insight within normal limits. SKIN: No significant ecchymosis, skin is noted to be warm. MUSCULOSKELETAL EXAM: No significant acute joint swelling noted. Results Laboratory Results: 02/17/18 03:51 02/17/18 03:51 02/17/18 02/17/18 03:51 03:51 WBC 7.2 RBC 5.17 Hgb 14.8 Hct 43.6 MCV 84 MCH 28.6 MCHC 33.9 RDW 14.7 H Plt Count 138 L Sodium 142.0 Potassium 3.7 Chloride 95 L Carbon Dioxide 35 H Anion Gap 12 BUN 35 H Creatinine 0.74 Est GFR ( Amer) > 60 Est GFR (Non-Af Amer) > 60 Glucose 142 H Calcium 8.9 02/14/18 02/15/18 02/15/18 22:49 05:03 10:45 Troponin I 0.052 0.037 0.028 NT-Pro-B Natriuret Pep 684 02/16/18 02/17/18 05:04 03:51 Troponin I NT-Pro-B Natriuret Pep 183 83 EKG Comments: Sinus rhythm, LVH with secondary ST-T wave changes noted Impressions: Chest X-Ray 02/14/18 16:37 IMPRESSION: Congestive heart failure. Assessment & Plan - Diagnosis (1) Acute congestive heart failure Qualifiers: Heart failure type: systolic Qualified Code(s): I50.21 - Acute systolic ( congestive) heart failure Is this a current diagnosis for this admission?: Yes (2) Hypertensive urgency Is this a current diagnosis for this admission?: Yes (3) Acute hypoxemic respiratory failure Is this a current diagnosis for this admission?: Yes (4) Dyspnea Qualifiers: Dyspnea type: unspecified Qualified Code(s): R06.00 - Dyspnea, unspecified Is this a current diagnosis for this admission?: Yes (5) Elevated blood sugar Is this a current diagnosis for this admission?: Yes - Notes Notes: 2D echo reviewed. Agree with scheduling stress test. Will try optimize medical management of cardiomyopathy and depressed LVEF. Acute CHF: Based on 2D echo, this is diastolic plus systolic possibly brought on by noncompliance with medications, diet and severe hypertension. By the time I was consulted, patient seems pretty much well treated and BNP level had come back to baseline. At this point agree that any ischemia evaluation is indicated in view of patient's significant cardiac risk factors. This was therefore scheduled. Patient's medications reviewed. At this time, patient medical regimen for CHF is been gradually optimized. Hypertensive urgency: Patient on presentation had severe hypertension. Blood pressure now coming under control. Medications preferred would be beta-abigail , AILYN inhibitor/ARB. Acute hypoxemic respiratory failure: Most likely related to pulmonary edema, cardiogenic but patient could also have underlying obesity hypoventilation, COPD etc. Further evaluation can be continued as an outpatient. Currently patient has stable respiration. Dyspnea: Due to systolic and diastolic dysfunction along with obesity and deconditioning. Agree that this could be an ischemia equivalent symptom. Agree with nuclear stress test which will be performed. Discussed 2D echocardiogram results with the patient. Patient also noted to have elevated blood sugar. Patient would benefit from further evaluation as an outpatient. - Time Time Spent: 30 to 50 Minutes - CODE STATUS was discussed, patient remains full code. Surrogate decision-maker unchanged. Multiple medical problems were addressed. More than 50% of the time spent coordinating care, discussing management plans with involved caregivers. Management plans discussed with involved personnels. Medical decision making was of moderate to high complexity , patient's has multiple comorbidities. Medications reviewed and adjusted accordingly: Yes
[2018-02-18] MEDS: NITROGLYCERIN 2% OINTMENT 1 GM PACKET TP SCH ×5 (00:46→23:28)
[2018-02-18] MEDS: LANSOPRAZOLE 30 MG TAB.RAP.DR PO SCH (06:09)
[2018-02-18] MEDS: INSULIN REG, HUMAN 100 UNIT/ML 3 ML VIAL (PYX) SUBCUT PRN ×3 (08:08→17:38)
[2018-02-18] MEDS: ENOXAPARIN SODIUM INJ 40 MG/0.4 ML DISP.SYRIN SUBCUT SCH (10:00)
[2018-02-18] MEDS: FUROSEMIDE 40 MG TABLET PO SCH (11:10)
[2018-02-18] MEDS: CARVEDILOL 6.25 MG TABLET PO SCH ×2 (11:10→21:34)
[2018-02-18] MEDS: LISINOPRIL 10 MG TABLET PO SCH (11:10)
--- NOTE | 2018-02-18 12:26 | DRAGON STRESS TEST REPORT ---
INTRAVENOUS LEXISCAN CARDIOLITE STRESS TEST USING SINGLE PHOTON EMMISION COMPUTERIZED TOMOGRAPHIC. DATE OF PROCEDURE: February 18, 2018, INDICATION : Cardiomyopathy, CHF CARDIAC RISK FACTORS: Diabetes, hypertension RESTING EKG: Sinus rhythm, LVH with secondary ST-T wave changes STRESS EKG: No significant ST segment changes noted with LexiScan bolus REASON FOR TERMINATION: Protocol. PROCEDURE REPORT: Baseline heart rate 61 beats per minute with blood pressure of 138/90. Patient had no significant complaints. Patient was bolused with Lexiscan 0.4 mg intravenously followed by saline bolus. Heart rate at 2 minutes post bolus 89 with a blood pressure of 163/75. 3 minutes post bolus heart rate 80 with blood pressure of 173/75. No significant EKG changes were noted. Patient had no significant complaints during the procedure or postprocedure. CONCLUSIONS: Normal EKG and hemodynamic response to IV LexiScan. NUCLEAR DATA: At rest the patient was given 13.06 millicuries of technetium 99 sestamibi injected intravenously. As per protocol rest gated SPECT images were obtained. On day of stress test, the patient was given intravenous LexiScan at a dose of 0.4 mg in 5 mL intravenously, followed by flush with normal saline. Subsequently the stress dose of 40.7 millicuries of technetium 99 sestamibi was injected intravenously. As per protocol stress gated images were obtained. NUCLEAR INTERPRETATION: Both raw and processed data were used for interpretation. Visual, qualitative, computer-generated quantitative data was used. There was good myocardial uptake of technetium compound. Motion artifact and soft tissue attenuations were noted. Increased visceral uptake was noted. Decreased uptake was noted in the mid anterior wall in both rest and stress images with slightly more decreased uptake in the stress imaging but seems to be most likely related to differences in breast attenuation artifact. SDS was noted to be 2, therefore unlikely to be significant in the way of burden of ischemia. No definitive areas of fixed perfusion defect or scars noted. EKG gated imaging showed LV EF at 35 %, rest and stress gated EF similar visually, diffuse hypokinesia noted. LVH noted. T. I D. ratio was 0.99. Lung heart ratio noted to be within normal limits 0.26. No significant extracardiac and abnormal radiotracer activities were noted. RV free wall uptake was noted to be WNL. IMPRESSION: Also refer to comments under nuclear interpretation. Also test results needs to be interpreted in the context of pretest probability. 1. No definitive areas of transient perfusion defect noted. Attenuation artifact is noted as discussed above. SDS was noted to be 2, therefore unlikely to be significant in the way of burden of ischemia. 2. There is no definitive scintigraphic evidence of myocardial infarction/scar. 3. EKG gated imaging shows left ventricular ejection fraction of approx. 35 %. Correlate with echocardiogram derived EF as nuclear EF could be falsely low especially in presence of LVH. 4. Clinical correlation requested as occasionally single vessel disease or balanced ischemia could be missed. In approximately 10% of the cases Lexiscan may not cause adequate vasodilatory stress. RECOMMENDATIONS: Aggressive risk factor modification and medical management. Further evaluation may be needed if continued symptoms or other high risk indicators are noted on clinical evaluation. Close cardiology follow-up is also recommended. Clinical correlation with echocardiogram derived ejection fraction. Inability to exercise by itself can lead to increased cardiovascular event risks. Consider cardiology consultation and or follow-up if clinically indicated. I am available for cardiology evaluation and consultation if requested by the site interpreter, unless patient already has a talent sourcer. Dr. Justo Johnson. MRCP Board certified in cardiology and sleep medicine. Board certified in nuclear cardiology, adult echocardiography. [place]
--- NOTE | 2018-02-18 18:22 | PDOC PROGRESS REPORT ---
Subjective Progress Note for:: 02/18/18 Subjective:: No adverse events overnight. No new complaints. She still gets hypoxic when the oxygen was taken off. She dropped into the low 80s yesterday she did begin today. She is back on 2 or 3 L her oxygen saturation him up in the mid 90s. Reason For Visit: HEART FAILURE Physical Exam Vital Signs: Temp Pulse Resp BP Pulse Ox 98.4 F 62 16 126/53 H 91 L 02/18/18 18:00 02/18/18 18:00 02/18/18 18:00 02/18/18 18:00 02/18/18 18:00 Pulse Oximeter Continuous Start: 02/14/18 18: 32 Freq: RTQ4 Status: Active Document 02/18/18 15:45 LDA (Rec: 02/18/18 15:46 LDA [id number]) Pulse Oximetry Assessment Oxygen Saturation (92-100) 90 Oxygen Delivery Method Room Air Fraction of Inspired Oxygen (FIO2) 21 Equipment Usage Equipment in Use Continuous SpO2 Machine # 8 Intake & Output 02/17/18 02/18/18 02/19/18 06:59 06:59 06:59 Intake Total 1020 883 Balance 1020 883 Weight 87.5 kg 87.3 kg General appearance: PRESENT: no acute distress, cooperative, morbidly obese Respiratory exam: PRESENT: clear to auscultation wilfred, unlabored. ABSENT: accessory muscle use, rales, rhonchi, wheezes Cardiovascular exam: PRESENT: RRR. ABSENT: systolic murmur GI/Abdominal exam: PRESENT: normal bowel sounds, soft. ABSENT: guarding, rebound, tenderness Extremities exam: ABSENT: pedal edema Musculoskeletal exam: PRESENT: ambulatory, normal inspection. ABSENT: deformity Neurological exam: PRESENT: alert, awake, oriented to person, oriented to place , oriented to time, oriented to situation Psychiatric exam: PRESENT: appropriate affect, normal mood Skin exam: PRESENT: dry, warm Results Laboratory Results: 02/17/18 03:51 02/17/18 03:51 02/14/18 02/15/18 02/15/18 22:49 05:03 10:45 Troponin I 0.052 0.037 0.028 NT-Pro-B Natriuret Pep 684 02/16/18 02/17/18 05:04 03:51 Troponin I NT-Pro-B Natriuret Pep 183 83 Impressions: Chest X-Ray 02/14/18 16:37 IMPRESSION: Congestive heart failure. Assessment & Plan - Diagnosis (1) Acute congestive heart failure Qualifiers: Heart failure type: systolic Qualified Code(s): I50.21 - Acute systolic ( congestive) heart failure Is this a current diagnosis for this admission?: Yes Plan: Her echocardiogram shows an EF of 40-45% with grade 2 diastolic dysfunction. She has been switched over to oral Lasix. Cardiology has been consulted. Stress test was negative. If she does not have coronary ischemia, most likely scenario here would be from long-standing untreated hypertension. (2) Malignant hypertensive urgency Is this a current diagnosis for this admission?: Yes Plan: Resolved (3) Acute hypoxemic respiratory failure Is this a current diagnosis for this admission?: Yes Plan: Her oxygen levels room air. She is probably going to have to have oxygen she goes home. - Time Time Spent with patient: 15-24 minutes
[2018-02-19] MEDS: NITROGLYCERIN 2% OINTMENT 1 GM PACKET TP SCH ×2 (06:40→15:57)
[2018-02-19] MEDS: LANSOPRAZOLE 30 MG TAB.RAP.DR PO SCH (06:41)
[2018-02-19] MEDS: LISINOPRIL 10 MG TABLET PO SCH (09:45)
[2018-02-19] MEDS: CARVEDILOL 6.25 MG TABLET PO SCH (09:46)
[2018-02-19] MEDS: FUROSEMIDE 40 MG TABLET PO SCH (09:46)
[2018-02-19] MEDS: ENOXAPARIN SODIUM INJ 40 MG/0.4 ML DISP.SYRIN SUBCUT SCH (09:47)
[2018-02-19] MEDS: ACETAMINOPHEN 325 MG TABLET PO PRN (11:30)
[2018-02-19] MEDS: INSULIN REG, HUMAN 100 UNIT/ML 3 ML VIAL (PYX) SUBCUT PRN (12:52)
[2018-02-19 15:22] VITALS: BP 160/60
--- NOTE | 2018-02-19 16:42 | PDOC PROGRESS REPORT ---
Subjective Progress Note for:: 02/18/18 Subjective:: Patient was seen in the morning, in the afternoon and also in the evening. Patient got missed. In the morning, nuclear stress test risk procedure was explained to the patient in detail. Patient underwent nuclear stress test without any complications. In the late afternoon and in the evening, patient was reevaluated. There were no complications from stress test. Stress test results were discussed with the patient. Patient denying any chest pain. She is denying any shortness of breath. Patient has been noted to have drop in O2 saturation. Apparently her discharge is being delayed because we need to arrange for oxygen at home. Possibly patient could be having obesity hypoventilation syndrome. Patient may also have some underlying pulmonary issues. Reason For Visit: HEART FAILURE Physical Exam Vital Signs: Temp Pulse Resp BP Pulse Ox 97.5 F 54 L 18 160/60 H 91 L 02/19/18 15:18 02/19/18 15:18 02/19/18 15:18 02/19/18 15:18 02/19/18 15:18 Pulse Oximeter Continuous Start: 02/14/18 18: 32 Freq: RTQ4 Status: Discharge Document 02/19/18 15:31 LDA (Rec: 02/19/18 15:31 LDA [id number]) Pulse Oximetry Assessment Equipment Usage Equipment Discontinued Continuous SpO2 Machine # 8 Intake & Output 02/18/18 02/19/18 02/20/18 06:59 06:59 06:59 Intake Total 883 1895 Balance 883 1895 Weight 87.3 kg 89.5 kg Exam: GENERAL: well-nourished and in no acute distress. Alert and oriented x3 HEAD: Atraumatic, normocephalic. EYES: Pupils equal round and reactive to light, extraocular movements intact, sclera anicteric, conjunctiva are normal. ENT: TMs normal, nares patent, oropharynx clear without exudates. Moist mucous membranes. No oral ulcerations or bleeding gums noted NECK: supple without lymphadenopathy. Trachea is central. No cervical or axillary lymphadenopathy noted. Carotids are 2+, JVD WNL LUNGS: Respiration seems nonlabored, no significant accessory muscle action noted. Few bibasilar coarse crackles are noted. No wheezes rales or rhonchi noted. No significant dullness noted on percussion. CHEST: Palpation of the chest wall shows no significant chest wall tenderness. 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 ABDOMEN: Soft, no significant tenderness appreciated, normoactive bowel sounds. No guarding, no rebound. No rigidity noted . No masses appreciated. EXTREMITIES: Pedal pulses are 1-2+, no calf tenderness noted. No clubbing or cyanosis. Trace pedal edema noted NEUROLOGICAL: Focused neurological exam showed no significant neurologic deficit. Normal speech, no focal weakness appreciated. PSYCH: Normal mood, normal affect. Judgment and insight within normal limits. SKIN: No significant ecchymosis, skin is noted to be warm. MUSCULOSKELETAL EXAM: No significant acute joint swelling noted. Results Laboratory Results: 02/17/18 03:51 02/17/18 03:51 02/14/18 02/15/18 02/15/18 22:49 05:03 10:45 Troponin I 0.052 0.037 0.028 NT-Pro-B Natriuret Pep 684 02/16/18 02/17/18 05:04 03:51 Troponin I NT-Pro-B Natriuret Pep 183 83 EKG Comments: Telemetry strip shows sinus rhythm without any sustained tachycardia or bradycardia. Impressions: Chest X-Ray 02/14/18 16:37 IMPRESSION: Congestive heart failure. Assessment & Plan - Diagnosis (1) Acute congestive heart failure Qualifiers: Heart failure type: systolic Qualified Code(s): I50.21 - Acute systolic ( congestive) heart failure Is this a current diagnosis for this admission?: Yes (2) Hypertensive urgency Is this a current diagnosis for this admission?: Yes (3) Acute hypoxemic respiratory failure Is this a current diagnosis for this admission?: Yes (4) Dyspnea Qualifiers: Dyspnea type: unspecified Qualified Code(s): R06.00 - Dyspnea, unspecified Is this a current diagnosis for this admission?: Yes (5) Elevated blood sugar Is this a current diagnosis for this admission?: Yes - Notes Notes: Acute CHF: Based on 2D echo, this is diastolic plus systolic possibly brought on by noncompliance with medications, diet and severe hypertension. Patient today seems compensated as regards fluid overload, she is euvolemic at this time. Patient medical regimen for CHF is been gradually optimized. Hypertensive urgency: Patient on presentation had severe hypertension. Blood pressure now coming under control. Medications preferred would be beta-abigail , AILYN inhibitor/ARB. Acute hypoxemic respiratory failure: Most likely related to pulmonary edema, cardiogenic but patient could also have underlying obesity hypoventilation, COPD etc. Further evaluation can be continued as an outpatient. Currently patient has stable respiration. Dyspnea: Due to systolic and diastolic dysfunction along with obesity and deconditioning. Nuclear stress test results were reviewed with the patient. No definite ischemia noted with pharmacologic stress. Informed that occasionally single-vessel disease could be missed. Patient to report any recurrence of chest pain. Patient also noted to have elevated blood sugar. Patient would benefit from further evaluation as an outpatient. - Time Time with patient: Greater than 35 minutes - Patient was seen multiple times. Total time exceeds 40 minutes. In the morning nuclear stress test procedure, risks benefits, alternatives were discussed. Patient seen during the stress test. Patient also seen after stress test when results were discussed with the patient in detail. Patient's questions were answered. Nuclear stress test results were discussed with the patient. Patient was informed that no definitive evidence of pharmacologic stress-induced ischemia noted. No definite fixed defects were noted. Patient informed that occasionally significant single vessel disease or balanced ischemia could be missed. However based on the current study results, would recommend aggressive risk factor modification and medical therapy. It may also be worthwhile to consider evaluation or empiric management of other causes of chest pain. Should no other cause be found and if persistent in having chest pain, then cardiac catheterization should be considered. Right now, recommendations are for aggressive risk factor modification and medical management. More than 50% of the time spent coordinating care, discussing management plans with involved caregivers. Management plans discussed with involved personnels. Medical decision making was of moderate to high complexity, patient's has multiple comorbidities. Medications reviewed and adjusted accordingly: Yes
--- NOTE | 2018-02-19 16:44 | PDOC PROGRESS REPORT ---
Subjective Progress Note for:: 02/19/18 Subjective:: Patient was seen on morning rounds prior to discharge. She is expected to be discharged. I am told that oxygen is being arranged and will be available later this afternoon. Patient has been noted to have no problems when ambulating. Telemetry strips shows no significant arrhythmias. Reason For Visit: HEART FAILURE Physical Exam Vital Signs: Temp Pulse Resp BP Pulse Ox 97.5 F 54 L 18 160/60 H 91 L 02/19/18 15:18 02/19/18 15:18 02/19/18 15:18 02/19/18 15:18 02/19/18 15:18 Pulse Oximeter Continuous Start: 02/14/18 18: 32 Freq: RTQ4 Status: Discharge Document 02/19/18 15:31 LDA (Rec: 02/19/18 15:31 LDA [id number]) Pulse Oximetry Assessment Equipment Usage Equipment Discontinued Continuous SpO2 Machine # 8 Intake & Output 02/18/18 02/19/18 02/20/18 06:59 06:59 06:59 Intake Total 883 1895 Balance 883 1895 Weight 87.3 kg 89.5 kg Exam: GENERAL: well-nourished and in no acute distress. Alert and oriented x3 HEAD: Atraumatic, normocephalic. EYES: Pupils equal round and reactive to light, extraocular movements intact, sclera anicteric, conjunctiva are normal. ENT: TMs normal, nares patent, oropharynx clear without exudates. Moist mucous membranes. No oral ulcerations or bleeding gums noted NECK: supple without lymphadenopathy. Trachea is central. No cervical or axillary lymphadenopathy noted. Carotids are 2+, JVD WNL LUNGS: Respiration seems nonlabored, no significant accessory muscle action noted. Breath sounds clear to auscultation bilaterally and equal noted. No wheezes rales or rhonchi noted. No significant dullness noted on percussion. CHEST: Palpation of the chest wall shows no significant chest wall tenderness. 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 ABDOMEN: Soft, no significant tenderness appreciated, normoactive bowel sounds. No guarding, no rebound. No rigidity noted . No masses appreciated. EXTREMITIES: Pedal pulses are 1-2+, no calf tenderness noted. No clubbing or cyanosis. negative pedal edema noted NEUROLOGICAL: Focused neurological exam showed no significant neurologic deficit. Normal speech, no focal weakness appreciated. PSYCH: Normal mood, normal affect. Judgment and insight within normal limits. SKIN: No significant ecchymosis, skin is noted to be warm. MUSCULOSKELETAL EXAM: No significant acute joint swelling noted. Results Laboratory Results: 02/17/18 03:51 02/17/18 03:51 02/14/18 02/15/18 02/15/18 22:49 05:03 10:45 Troponin I 0.052 0.037 0.028 NT-Pro-B Natriuret Pep 684 02/16/18 02/17/18 05:04 03:51 Troponin I NT-Pro-B Natriuret Pep 183 83 EKG Comments: Telemetry shows sinus rhythm without any sustained tachycardia or bradycardia. Impressions: Chest X-Ray 02/14/18 16:37 IMPRESSION: Congestive heart failure. Assessment & Plan - Diagnosis (1) Acute congestive heart failure Qualifiers: Heart failure type: systolic Qualified Code(s): I50.21 - Acute systolic ( congestive) heart failure Is this a current diagnosis for this admission?: Yes (2) Hypertensive urgency Is this a current diagnosis for this admission?: Yes (3) Acute hypoxemic respiratory failure Is this a current diagnosis for this admission?: Yes (4) Dyspnea Qualifiers: Dyspnea type: unspecified Qualified Code(s): R06.00 - Dyspnea, unspecified Is this a current diagnosis for this admission?: Yes (5) Elevated blood sugar Is this a current diagnosis for this admission?: Yes - Notes Notes: CHF: Based on 2D echo, this is diastolic plus systolic possibly brought on by noncompliance with medications, diet and severe hypertension. Currently compensated and seems to be on a satisfactory regimen which could be optimized further as an outpatient. Hypertensive urgency: Patient on presentation had severe hypertension. Blood pressure now satisfactorily controlled. Acute hypoxemic respiratory failure: Patient now has chronic intermittent hypoxemia. Possibly related to obesity hypoventilation syndrome. Patient could have some underlying parenchymal disease. Further evaluation can be completed as an outpatient. Dyspnea: Due to systolic and diastolic dysfunction along with obesity and deconditioning. Patient encouraged in weight loss, regular walking program. Patient also noted to have elevated blood sugar. Patient would benefit from further evaluation as an outpatient. - Time Time with patient: 15-25 minutes - CODE STATUS was discussed, patient remains full code. Surrogate decision-maker unchanged. Multiple medical problems were addressed. More than 50% of the time spent coordinating care, discussing management plans with involved caregivers. Management plans discussed with involved personnels. Medical decision making was of moderate to high complexity , patient's has multiple comorbidities. Medications reviewed and adjusted accordingly: Yes
--- NOTE | 2018-02-19 18:19 | PDOC DISCHARGE SUMMARY ---
General - Admit/Disc Date/PCP Admission Date/Primary Care Provider: 02/14/18 18:19 MELVI RUTH Discharge Date: 02/19/18 - Discharge Diagnosis (1) Acute congestive heart failure Is this a current diagnosis for this admission?: Yes Summary: Thought to be due to long-standing hypertension. She had a reduced EF. She has been medically optimized and had a good response of diuretics. She will follow up with cardiology as an outpatient. Right now she would be considered NYHA class II. (2) Malignant hypertensive urgency Is this a current diagnosis for this admission?: Yes Summary: This resolved with treatment of her blood pressure. Go home on carvedilol and lisinopril. She is also on a diuretic. (3) Acute hypoxemic respiratory failure Is this a current diagnosis for this admission?: Yes Summary: She required home oxygen because her saturations even after she was euvolemic were in the 80s on room air at rest. Arrangements were made for her and she is getting oxygen at home. (4) Diabetes mellitus Is this a current diagnosis for this admission?: Yes Summary: She says she has some metformin at home but she just has not been taking it. I encouraged her to resume it. I also encouraged her to get a primary care provider for follow-up on this. - Additional Information Resuscitation Status: Full Code Discharge Diet: As Tolerated, Cardiac, Diabetic Discharge Activity: Activity As Tolerated, Balance Activity w/Rest, Weigh Daily Prescriptions: Carvedilol 12.5 mg PO BID #60 tablet Furosemide [Lasix 40 mg Tablet] 40 mg PO QAM #30 tablet Lisinopril [Prinivil 10 mg Tablet] 10 mg PO DAILY #30 tablet Home Medications: Albuterol Sulfate [Ventolin Hfa] 1 puff IH PRN PRN 02/14/18 Carvedilol 12.5 mg PO BID #60 tablet 02/19/18 Furosemide [Lasix 40 mg Tablet] 40 mg PO QAM #30 tablet 02/19/18 Lisinopril [Prinivil 10 mg Tablet] 10 mg PO DAILY #30 tablet 02/19/18 History of Present Illness History of Present Illness: REMINGTON SILVA is a 62 year old female with history of hypertension and diabetes, neither which she takes anything for, who had sudden onset of shortness of breath about 3 days ago. She denies any chest pain. She says that she has been taken Lasix for a while because she gets swelling in her legs but she does not know what the source of the swelling is. She has never had a heart attack that she knows of. She has never had a stress test or cardiac catheterization or any heart surgery. She was unable to lay down flat and had to sit propped up in order to sleep. When she came to the emergency department her SPO2 was 87% on room air. Her BMP was a little elevated and she had findings of pulmonary edema on her chest x-ray. She has not been running a fever. She has not had a cough. She has also been very hypertensive with a systolic near 200 on her initial presentation. Hospital Course Hospital Course: She responded very well to diuresis. Her medication regimen was optimized. She required oxygen even while euvolemic. She says she has been on oxygen at home in the past. She had a stress test that was negative. Her EF on her echocardiogram was 40-45%. She also has some evidence of diastolic dysfunction and elevated right-sided pressures. She will follow-up with cardiology on an outpatient basis. Her labs and examination were reassuring and she was discharged home in good condition. Physical Exam Vital Signs: Temp Pulse Resp BP Pulse Ox 97.5 F 54 L 18 160/60 H 91 L 02/19/18 15:18 02/19/18 15:18 02/19/18 15:18 02/19/18 15:18 02/19/18 15:18 Pulse Oximeter Continuous Start: 02/14/18 18: 32 Freq: RTQ4 Status: Discharge Document 02/19/18 15:31 CAMRYN (Rec: 02/19/18 15:31 LDA [email or web address]) Pulse Oximetry Assessment Equipment Usage Equipment Discontinued Continuous SpO2 Machine # 8 Intake & Output 02/18/18 02/19/18 02/20/18 06:59 06:59 06:59 Intake Total 883 1895 Balance 883 1895 Weight 87.3 kg 89.5 kg General appearance: PRESENT: no acute distress, cooperative, morbidly obese Respiratory exam: PRESENT: clear to auscultation wilfred, unlabored. ABSENT: accessory muscle use, rales, rhonchi, wheezes Cardiovascular exam: PRESENT: RRR. ABSENT: systolic murmur GI/Abdominal exam: PRESENT: normal bowel sounds, soft. ABSENT: guarding, rebound, tenderness Extremities exam: ABSENT: pedal edema Musculoskeletal exam: PRESENT: ambulatory, normal inspection. ABSENT: deformity Neurological exam: PRESENT: alert, awake, oriented to person, oriented to place , oriented to time, oriented to situation Psychiatric exam: PRESENT: appropriate affect, normal mood Skin exam: PRESENT: dry, warm Results Laboratory Results: 02/17/18 03:51 02/17/18 03:51 02/14/18 02/15/18 02/15/18 22:49 05:03 10:45 Troponin I 0.052 0.037 0.028 NT-Pro-B Natriuret Pep 684 02/16/18 02/17/18 05:04 03:51 Troponin I NT-Pro-B Natriuret Pep 183 83 Impressions: Chest X-Ray 02/14/18 16:37 IMPRESSION: Congestive heart failure. Qualifiers - * PATIENT BEING DISCHARGED WITH ANY OF THE FOLLOWING DIAGNOSIS: Heart Failure HF Pt being discharged on ACEI for LVEF less than 40%?: Yes HF Pt being discharged on ARBS for LVEF less than 40%?: No Reason(s) for not prescribing ARBS:: Not indicated - Already on AILYN inhibitor HF Pt with Afib discharged with Warfarin?: No Reason(s) for not prescribing Warfarin:: Not indicated HF Pt discharged on evidence-based Beta Domenico:: Yes
== END 2018-02-19 15:56 | disposition home or self-care (01) | DRG 291 ==
LOC: ER 15:31 → EH 18:19 → 4W 02-15 01:04 → 5 02-16 19:10
PROVIDERS: ADMIT Internal Medicine; ATTEND Internal Medicine
DX: I11.0 Hypertensive heart disease with heart failure (principal); J96.01 Acute respiratory failure with hypoxia; I50.41 Acute combined systolic (congestive) and diastolic (congestive) heart failure; E11.9 Type 2 diabetes mellitus without complications; J44.9 Chronic obstructive pulmonary disease, unspecified; I16.0 Hypertensive urgency; E66.01 Morbid (severe) obesity due to excess calories; Z90.49 Acquired absence of other specified parts of digestive tract; Z90.710 Acquired absence of both cervix and uterus; Z87.891 Personal history of nicotine dependence; Z88.6 Allergy status to analgesic agent; Z91.041 Radiographic dye allergy status; Z68.36 Body mass index [BMI] 36.0-36.9, adult; Z91.14 Patient's other noncompliance with medication regimen; Z79.84 Long term (current) use of oral hypoglycemic drugs
CPT/HCPCS: 36415; 71046; 78452; 80048; 80053; 81001; 82553; 82962; 83036; 83880; 84484; 85025; 85027; 93005; 93010; 93017; 93306; 94640; 94762; 99285; A9500; J1650; J1815; J1940; J3490; J7620

== ENCOUNTER 2018-06-28 16:42 | Inpatient (IN) | payer MEDICARE ==
[2018-06-28 17:32] LABS: ABSOLUTE BASOPHILS # (AUTO) 0.1 10^3/uL (0.0-0.2); ABSOLUTE EOSINOPHILS # (AUTO) 0.2 10^3/uL (0.0-0.6); ABSOLUTE LYMPHOCYTES (AUTO) 1.2 10^3/uL (0.5-4.7); ABSOLUTE MONOCYTES (AUTO) 0.7 10^3/uL (0.1-1.4); ABSOLUTE NEUT (AUTO) 6.8 10^3/uL (1.7-8.2); BASOPHILS % (AUTO) 0.6 % (0-2); EOSINOPHILS % (AUTO) 1.8 % (0-6); HEMATOCRIT 44.2 % (36.0-47.0); HEMOGLOBIN 14.7 g/dL (12.0-15.5); LYMPHOCYTES % (AUTO) 13.8 % (13-45); MEAN CORPUSCULAR HEMOGLOBIN 29.4 pg (27.0-33.4); MEAN CORPUSCULAR HGB CONC 33.3 g/dL (32.0-36.0); MEAN CORPUSCULAR VOLUME 88 fl (80-97); MONOCYTES % (AUTO) 7.7 % (3-13); PLATELET COUNT 148 10^3/uL (150-450); RED BLOOD COUNT 5.02 10^6/uL (3.72-5.28); RED CELL DISTRIBUTION WIDTH 14.9 % (11.5-14.0); SEGMENTED NEUTROPHILS % (AUTO) 76.1 % (42-78); TOTAL CELLS COUNTED % (AUTO) 100 %
--- NOTE | 2018-06-28 17:49 | RADIOLOGY REPORT (SQ) ---
EXAM DESCRIPTION: CHEST SINGLE VIEW COMPLETED DATE/TIME: 06/28/2018 5:05 pm REASON FOR STUDY: resp distress COMPARISON: None. EXAM PARAMETERS: NUMBER OF VIEWS: One view. TECHNIQUE: Single frontal radiographic view of the chest acquired. RADIATION DOSE: NA LIMITATIONS: None. FINDINGS: LUNGS AND PLEURA: No opacities, masses or pneumothorax. No pleural effusion. MEDIASTINUM AND HILAR STRUCTURES: No masses. Contour normal. HEART AND VASCULAR STRUCTURES: Cardiomegaly. No pulmonary edema. BONES: No acute findings. HARDWARE: None in the chest. OTHER: No other significant finding. IMPRESSION: Cardiomegaly with no pulmonary edema. TECHNICAL DOCUMENTATION: JOB ID: [id number] [employer]- All Rights Reserved Reading location - IP/workstation name: [email or web address]
[2018-06-28 17:53] LABS: ALANINE AMINOTRANSFERASE 24 U/L (9-52); ALBUMIN 3.7 g/dL (3.5-5.0); ALKALINE PHOSPHATASE 109 U/L (38-126); ASPARTATE AMINO TRANSFERASE 17 U/L (14-36); BILIRUBIN,DIRECT 0.2 mg/dL (0.0-0.4); BILIRUBIN,TOTAL 0.4 mg/dL (0.2-1.3); BLOOD UREA NITROGEN 21 mg/dL (7-20); CALCIUM 9.5 mg/dL (8.4-10.2); CHLORIDE 94 mmol/L (98-107); CREATINE KINASE 33 U/L (30-135); GLUCOSE 216 mg/dL (75-110); POTASSIUM 4.2 mmol/L (3.6-5.0); SODIUM 142.3 mmol/L (137-145); TOTAL PROTEIN 6.6 g/dL (6.3-8.2)
[2018-06-28 18:00] LABS: ANION GAP 8 (5-19)
[2018-06-28 18:03] LABS: CARBON DIOXIDE 40 mmol/L (22-30)
[2018-06-28 18:05] LABS: CREATINE KINASE MB 0.96 ng/mL (<4.55); TROPONIN I 0.015 ng/mL
--- NOTE | 2018-06-28 18:13 | ER Document Report ---
ED Respiratory Problem - General Chief Complaint: Respiratory Distress Stated Complaint: DIFFICULTY BREATHING,CONGESTION Time Seen by Provider: 06/28/18 18:12 Mode of Arrival: Ambulatory Information source: Patient Notes: Patient is a 63-year-old female with history of CHF, COPD on home oxygen, and multiple other cardiac risk factors who presents with exertional dyspnea for the past 2 days. Patient reports that she wears 2 L of oxygen "as needed," has been using it more frequently today, has also been having to sleep completely upright for the past 2 days as compared to normally sleeping on 2 pillows at night. She reports no increase edema in her legs but does take diuretics. She reports mild productive cough of green or brown sputum which represents a slight increase from her baseline. She denies fevers or chills, no chest pain, no recent medication changes. TRAVEL OUTSIDE OF THE [place] IN LAST 30 DAYS: No - HPI Patient complains to provider of: CHF, COPD, Cough, Short of breath. No: Chest pain Onset: This morning Duration: Continuous Quality of pain: No pain Severity: Moderate Pain Level: Denies Context: Hx CHF, Hx COPD, Smoker Short of Breath: Moderate Cough: Nonproductive Sputum amount: Scant Sputum color: Brown Sputum consistency: Mucoid, Thick At home treatment: Bronchodilators, Diuretics Associated symptoms: Cough, Extertional dyspnea, PND, Short of breath Worsened by: Ambulation Similar symptoms previously: Yes Recently seen / treated by doctor: No - Related Data Allergies/Adverse Reactions: aspirin Allergy (Verified 06/28/18 17:14) Iodinated Contrast- Oral and IV Dye Allergy (Verified 06/28/18 17:14) Past Medical History - General Information source: Patient - Social History Smoking Status: Former Smoker Chew tobacco use (# tins/day): No Frequency of alcohol use: Occasional Drug Abuse: None Lives with: Alone Family History: DM, Hypertension Patient has suicidal ideation: No Patient has homicidal ideation: No - Past Medical History Cardiac Medical History: Reports: Hx Congestive Heart Failure, Hx Hypercholesterolemia, Hx Hypertension Pulmonary Medical History: Reports: Hx Asthma, Hx COPD EENT Medical History: Reports: None Neurological Medical History: Reports: None Endocrine Medical History: Reports: Hx Diabetes Mellitus Type 2 - under control w/o medication Renal/ Medical History: Reports: None. Denies: Hx Peritoneal Dialysis Malignancy Medical History: Reports: None GI Medical History: Reports: None Musculoskeletal Medical History: Reports None Skin Medical History: Reports None Psychiatric Medical History: Reports: None Traumatic Medical History: Reports: None Infectious Medical History: Reports: None Past Surgical History: Reports: Hx Appendectomy, Hx Breast Surgery - biopsy, Hx Cholecystectomy, Hx Hysterectomy, Hx Tonsillectomy - Immunizations Immunizations up to date: Yes Hx Diphtheria, Pertussis, Tetanus Vaccination: Yes Review of Systems - Review of Systems -: Yes ROS unobtainable due to patient's medical condition Constitutional: Weakness EENT: No symptoms reported Cardiovascular: Orthopnea, Dyspnea. denies: Chest pain Respiratory: Cough, Short of breath, Sputum. denies: Hemoptysis, Wheezing Gastrointestinal: No symptoms reported Genitourinary: No symptoms reported Female Genitourinary: No symptoms reported Musculoskeletal: No symptoms reported Skin: No symptoms reported Hematologic/Lymphatic: No symptoms reported Neurological/Psychological: No symptoms reported -: Yes All other systems reviewed and negative Physical Exam - Vital signs Vitals: Temp Pulse Resp BP Pulse Ox 98.1 F 63 36 H 211/73 H 78 L 06/28/18 17:00 06/28/18 17:00 06/28/18 17:00 06/28/18 17:00 06/28/18 17:00 Interpretation: Normal - General General appearance: Appears well, Alert In distress: Mild - HEENT Head: Normocephalic, Atraumatic Eyes: Normal Pupils: PERRL - Respiratory Respiratory status: Depressed respirations. No: Labored Chest status: Nontender Breath sounds: Decreased air movement. No: Rales, Rhonchi, Wheezing Chest palpation: Normal - Cardiovascular Rhythm: Regular Heart sounds: Normal auscultation Murmur: No - Abdominal Inspection: Normal Distension: No distension Bowel sounds: Normal Tenderness: Nontender Organomegaly: No organomegaly - Rectal Tenderness: No - Deferred - Genitourinary Notes: Deferred - Back Back: Normal, Nontender - Extremities General upper extremity: Normal inspection, Nontender, Normal color, Normal ROM , Normal temperature General lower extremity: Normal inspection, Nontender, Normal color, Normal ROM , Normal temperature, Normal weight bearing. No: Reema's sign - Neurological Neuro grossly intact: Yes Cognition: Normal Orientation: AAOx4 [place] Coma Scale Eye Opening: Spontaneous [place] Coma Scale Verbal: Oriented [place] Coma Scale Motor: Obeys Commands [place] Coma Scale Total: 15 Speech: Normal Motor strength normal: LUE, RUE, LLE, RLE Sensory: Normal - Psychological Associated symptoms: Normal affect, Normal mood - Skin Skin Temperature: Warm Skin Moisture: Dry Skin Color: Normal Course - Re-evaluation Re-evalutation: 06/28/18 19:18 Plan is to obtain labs, chest x-ray, give IV Solu-Medrol with DuoNeb nebulizer treatment, and admit to the hospital. 06/28/18 23:05 Lab work, including BNP and troponin, are grossly unremarkable. Patient does have an elevated bicarbonate level of 40, likely secondary to her respiratory status. Arterial blood gas shows a PCO2 of 85 with a pH of 7.32. Patient will be admitted to the hospitalist. - Vital Signs Vital signs: Temp Pulse Resp BP Pulse Ox 98.1 F 63 18 200/82 H 94 06/28/18 17:00 06/28/18 17:00 06/28/18 22:51 06/28/18 23:00 06/28/18 22:51 - Laboratory Result Diagrams: 06/28/18 17:05 06/28/18 17:05 Laboratory results interpreted by me: 06/28/18 06/28/18 06/28/18 17:05 17:05 17:50 RDW 14.9 H Plt Count 148 L Carbonic Acid ABG pH ABG pCO2 ABG pO2 ABG HCO3 ABG Total CO2 ABG O2 Saturation Chloride 94 L Carbon Dioxide 40 H* BUN 21 H Glucose 216 H Urine Protein 100 H Ur Leukocyte Esterase LARGE H 06/28/18 21:05 RDW Plt Count Carbonic Acid 2.56 H ABG pH 7.32 L ABG pCO2 85.1 H* ABG pO2 76.9 L ABG HCO3 42.9 H ABG Total CO2 45.5 H ABG O2 Saturation 93.6 L Chloride Carbon Dioxide BUN Glucose Urine Protein Ur Leukocyte Esterase - Diagnostic Test Radiology reviewed: Reports reviewed - EKG Interpretation by Me EKG shows normal: Sinus rhythm Rate: Normal Rhythm: NSR Harned/QRS: No: LBBB P Waves: No: THERON, LAE, Absent, AV Dissociation, Other Heart block present: No: 1st Degree, Mobitz 1, Mobitz 2, CHB (3rd degree block) When compared to previous EKG there are: No significant change - Consults Dr. Wakefield Time consulted: 23:00 - will admit Consulted provider: will come to ER Discharge - Discharge Clinical Impression: Shortness of breath, COPD exacerbation, Hypoxemia, Hypercarbia Disposition: ADMITTED INPATIENT Admitting Provider: Hospitalist Unit Admitted: Telemetry Referrals: MELVI RUTH [Primary Care Provider] - Follow up as needed
[2018-06-28 18:43] LABS: APPEARANCE,URINE SLIGHTLY-CLOUDY; BILIRUBIN,URINE NEGATIVE (NEGATIVE); COLOR,URINE YELLOW; GLUCOSE, URINE NEGATIVE (NEGATIVE); KETONES,URINE NEGATIVE (NEGATIVE); LEUKOCYTE ESTERASE,URINE LARGE (NEGATIVE); NITRITE,URINE NEGATIVE (NEGATIVE); PROTEIN,URINE 100 mg/dL (NEGATIVE); URINE SPECIFIC GRAVITY 1.019; UROBILINOGEN,URINE NEGATIVE mg/dL (<2.0)
[2018-06-28] MEDS ORDERED: IPRATROPIUM/ALBUTEROL 0.5-2.5 MG/3 ML AMPUL NEB ONE (19:07)
[2018-06-28] MEDS ORDERED: METHYLPREDNISOLONE INJ 125 MG/2 ML SDV IV ONE (19:07)
[2018-06-28 21:19] LABS: ARTERIAL BLOOD BASE EXCESS 12.4 mmol/L; ARTERIAL BLOOD H2CO3 2.56 mmol/L (1.05-1.35); ARTERIAL BLOOD HCO3 42.9 mmol/L (20-24); ARTERIAL BLOOD O2 SATURATION 93.6 % (94-98); ARTERIAL BLOOD PH 7.32 (7.35-7.45); ARTERIAL BLOOD PO2 76.9 mmHg (80-100); ARTERIAL BLOOD TOTAL CO2 45.5 mmol/L (21-25)
[2018-06-28 21:20] LABS: ARTERIAL BLOOD FIO2 4L
[2018-06-28 21:24] LABS: ARTERIAL BLOOD PCO2 85.1 mmHg (35-45)
[2018-06-28] MEDS ORDERED: ACETAMINOPHEN 325 MG TABLET PO PRN (22:57)
[2018-06-28] MEDS ORDERED: IPRATROPIUM/ALBUTEROL 0.5-2.5 MG/3 ML AMPUL NEB PRN (22:57)
[2018-06-28] MEDS ORDERED: GUAIFENESIN SYRP 200 MG/10 ML UDC PO PRN (22:57)
[2018-06-28] MEDS ORDERED: AZITHROMYCIN INJ 500 MG VIAL IV ONE (23:04)
[2018-06-28] MEDS ORDERED: DEXTROSE 40% GEL 15 GM TUBE PO PRN ×2 (23:10)
[2018-06-28] MEDS ORDERED: DEXTROSE 50%-WATER 25 GM/50 ML DISP.SYRIN IV PRN ×2 (23:10)
[2018-06-28] MEDS ORDERED: GLUCAGON,HUMAN RECOMB 1 MG INJ IM PRN (23:10)
[2018-06-28] MEDS ORDERED: CHLORPHENIRAMINE MALEATE 4 MG TABLET PO ONE (23:25)
[2018-06-28] MEDS ORDERED: FLUTICASONE NASAL SPRAY 50 MCG/SPRY 120 SPRAY/16 GM NASL ONE (23:30)
[2018-06-28] MEDS: HYDRALAZINE HCL INJ/PF 20 MG/1 ML SDV IV PRN (23:30)
[2018-06-28] MEDS ORDERED: LEVOFLOXACIN 750 MG/D5W RTU 750 MG/150 ML RTUPB IV ONE (23:30)
[2018-06-29 00:50] LABS: URINE AMPHETAMINES SCREEN NEGATIVE; URINE BARBITURATES SCREEN NEGATIVE; URINE BENZODIAZEPINES SCREEN NEGATIVE; URINE COCAINE SCREEN NEGATIVE; URINE MARIJUANA (THC) SCREEN NEGATIVE; URINE METHADONE SCREEN NEGATIVE; URINE PHENCYCLIDINE SCREEN NEGATIVE
[2018-06-29] MEDS: IPRATROPIUM/ALBUTEROL 0.5-2.5 MG/3 ML AMPUL NEB SCH ×4 (00:57→23:35)
[2018-06-29] MEDS ORDERED: LEVOFLOXACIN 750 MG/D5W RTU 750 MG/150 ML RTUPB IV ONE (01:00)
[2018-06-29] MEDS ORDERED: HEPARIN SOD (PORCINE) 5,000 UNIT/ML 1 ML SYRINGE SUBCUT SCH (06:00)
[2018-06-29 07:23] LABS: ANION GAP 10 (5-19); BLOOD UREA NITROGEN 18 mg/dL (7-20); CALCIUM 9.4 mg/dL (8.4-10.2); CARBON DIOXIDE 39 mmol/L (22-30); CHLORIDE 93 mmol/L (98-107); GLUCOSE 297 mg/dL (75-110); SODIUM 141.5 mmol/L (137-145)
[2018-06-29 07:27] LABS: ABSOLUTE LYMPHOCYTES (AUTO) 0.6 10^3/uL (0.5-4.7); ABSOLUTE MONOCYTES (AUTO) 0.1 10^3/uL (0.1-1.4); BASOPHILS % (AUTO) 0.3 % (0-2); EOSINOPHILS % (AUTO) 0.1 % (0-6); HEMATOCRIT 47.5 % (36.0-47.0); HEMOGLOBIN 15.9 g/dL (12.0-15.5); LYMPHOCYTES % (AUTO) 8.7 % (13-45); MEAN CORPUSCULAR HEMOGLOBIN 29.1 pg (27.0-33.4); MEAN CORPUSCULAR HGB CONC 33.6 g/dL (32.0-36.0); MEAN CORPUSCULAR VOLUME 87 fl (80-97); MONOCYTES % (AUTO) 1.3 % (3-13); PLATELET COUNT 146 10^3/uL (150-450); RED BLOOD COUNT 5.48 10^6/uL (3.72-5.28); RED CELL DISTRIBUTION WIDTH 14.8 % (11.5-14.0); SEGMENTED NEUTROPHILS % (AUTO) 89.6 % (42-78); TOTAL CELLS COUNTED % (AUTO) 100 %; WHITE BLOOD COUNT 6.7 10^3/uL (4.0-10.5)
--- NOTE | 2018-06-29 07:27 | PDOC H&P ---
History of Present Illness Admission Date/PCP: 06/28/18 23:12 MELVI RUTH Patient complains of: Shortness of breath History of Present Illness: REMINGTON SILVA is a 63 year old female with a past medical history of systolic heart failure with an ejection fraction of 40-45%, Moderate diastolic dysfunction, obstructive sleep apnea and COPD. Patient presents with 48 hours of shortness of breath and nonproductive cough. Denying chest pain palpitations nausea or vomiting. In the emergency room she is found to be severely hypoxic at 82% on room air and hypercapnic with a PCO2 of 80. She receives albuterol, Atrovent, supplemental oxygen but declines BiPAP. She is awake and alert stating tired but feels much better. Past Medical History Cardiac Medical History: Reports: Congestive Heart Failure, Hyperlipidema, Hypertension Pulmonary Medical History: Reports: Asthma, Chronic Obstructive Pulmonary Disease (COPD) EENT Medical History: Reports: None Neurological Medical History: Reports: None Endocrine Medical History: Reports: Diabetes Mellitus Type 2 - under control w/ o medication Renal/ Medical History: Reports: None Malignancy Medical History: Reports: None GI Medical History: Reports: None Musculoskeltal Medical History: Reports: None Skin Medical History: Reports: None Psychiatric Medical History: Reports: None Traumatic Medical History: Reports: None Infectious Medical History: Reports: None Past Surgical History Past Surgical History: Reports: Appendectomy, Cholecystectomy, Hysterectomy, Tonsillectomy Social History Information Source: Patient, [facility] Records Lives with: Alone Smoking Status: Former Smoker Frequency of Alcohol Use: Occasional Hx Recreational Drug Use: No Drugs: None Hx Prescription Drug Abuse: No - Advance Directive Resuscitation Status: Full Code Family History Family History: DM, Hypertension Parental Family History Reviewed: No Children Family History Reviewed: No Sibling(s) Family History Reviewed.: No Medication/Allergy Allergies/Adverse Reactions: aspirin Allergy (Verified 06/28/18 17:14) Iodinated Contrast- Oral and IV Dye Allergy (Verified 06/28/18 17:14) Review of Systems Constitutional: PRESENT: as per HPI, fatigue. ABSENT: fever(s), headache(s), night sweats Eyes: ABSENT: visual disturbances Ears: ABSENT: hearing changes Cardiovascular: ABSENT: chest pain, dyspnea on exertion, edema, orthropnea, palpitations Respiratory: PRESENT: as per HPI, cough, dyspnea. ABSENT: hemoptysis, sputum Gastrointestinal: ABSENT: abdominal pain, constipation, diarrhea, hematemesis, hematochezia, nausea, vomiting Genitourinary: ABSENT: dysuria, hematuria Musculoskeletal: ABSENT: joint swelling Integumentary: ABSENT: rash, wounds Neurological: ABSENT: abnormal gait, abnormal speech, confusion, dizziness, focal weakness, syncope Psychiatric: ABSENT: anxiety, depression, homidical ideation, suicidal ideation Endocrine: ABSENT: cold intolerance, heat intolerance, polydipsia, polyuria Hematologic/Lymphatic: ABSENT: easy bleeding, easy bruising Physical Exam Vital Signs: Temp Pulse Resp BP Pulse Ox 97.8 F 85 17 177/66 H 100 06/29/18 00:56 06/29/18 02:00 06/29/18 00:56 06/29/18 00:56 06/29/18 00:56 Intake & Output 06/27/18 06/28/18 06/29/18 11:59 11:59 11:59 Intake Total 150 Balance 150 Weight 89.7 kg General appearance: PRESENT: cooperative, obese, severe distress. ABSENT: disheveled Head exam: PRESENT: atraumatic, normocephalic Eye exam: PRESENT: conjunctiva pink, EOMI, PERRLA. ABSENT: scleral icterus Ear exam: PRESENT: normal external ear exam Mouth exam: PRESENT: moist, tongue midline Neck exam: ABSENT: carotid bruit, JVD, lymphadenopathy, thyromegaly Respiratory exam: PRESENT: accessory muscle use, crackles, decreased breath sounds, retraction, rhonchi, tachypnea, wheezes Cardiovascular exam: PRESENT: RRR, tachycardia. ABSENT: diastolic murmur, rubs , systolic murmur Pulses: PRESENT: normal dorsalis pedis pul Vascular exam: PRESENT: normal capillary refill GI/Abdominal exam: PRESENT: normal bowel sounds, soft. ABSENT: distended, guarding, mass, organolmegaly, rebound, tenderness Rectal exam: PRESENT: deferred Extremities exam: PRESENT: full ROM. ABSENT: calf tenderness, clubbing, pedal edema Neurological exam: PRESENT: alert, awake, oriented to person, oriented to place , oriented to time, oriented to situation, CN II-XII grossly intact. ABSENT: motor sensory deficit Psychiatric exam: PRESENT: appropriate affect, normal mood. ABSENT: homicidal ideation, suicidal ideation Skin exam: PRESENT: dry, intact, warm. ABSENT: cyanosis, rash Results Impressions: Chest X-Ray 06/28/18 00:00 IMPRESSION: Cardiomegaly with no pulmonary edema. Assessment & Plan - Diagnosis (1) Acute respiratory failure with hypoxia and hypercapnia Is this a current diagnosis for this admission?: Yes Plan: Pneumonia care set, incentive spirometry, flutter valve, BiPAP and education. (2) Obstructive sleep apnea Is this a current diagnosis for this admission?: Yes Plan: BiPAP and education (3) Acute exacerbation of chronic bronchitis Is this a current diagnosis for this admission?: Yes Plan: Flutter valve, empiric antibiotics, consider steroids (4) Diabetes Is this a current diagnosis for this admission?: Yes Plan: Outpatient regiment with Humalog sliding scale - Time Time Spent: 50 to 70 Minutes - Inpatient Certification Medical Necessity: Need Close Monitoring Due to Risk of Patient Decompensation
[2018-06-29] MEDS: FLUTICASONE NASAL SPRAY 50 MCG/SPRY 120 SPRAY/16 GM NASL SCH (09:15)
[2018-06-29] MEDS: FUROSEMIDE 40 MG TABLET PO SCH (09:15)
[2018-06-29] MEDS: LISINOPRIL 10 MG TABLET PO SCH (09:16)
[2018-06-29] MEDS: CARVEDILOL 12.5 MG TABLET PO SCH ×2 (09:16→21:18)
--- NOTE | 2018-06-29 09:32 | EKG REPORT ---
SEVERITY:- NORMAL ECG - SINUS RHYTHM : Confirmed by: Ev Johnson 29-Jun-2018 09:32:01
[2018-06-29] MEDS ORDERED: CARVEDILOL 12.5 MG TABLET PO SCH (10:00)
[2018-06-29] MEDS ORDERED: METHYLPREDNISOLONE INJ 40 MG/1 ML SDV IV SCH (12:00)
[2018-06-29] MEDS: HEPARIN SOD (PORCINE) 5,000 UNIT/ML 1 ML SYRINGE SUBCUT SCH ×2 (15:06→21:10)
[2018-06-29] MEDS: PREDNISONE 20 MG TABLET PO SCH ×2 (15:08→18:32)
--- NOTE | 2018-06-29 17:17 | PDOC PROGRESS REPORT ---
Subjective Progress Note for:: 06/29/18 Subjective:: MS. SILVA is a 63 year old female with a past medical history of systolic heart failure with an ejection fraction of 40-45%, diabetes mellitus currently not on medication, grade 2 diastolic dysfunction, obstructive sleep apnea and COPD who presented with cough and worsening shortness of breath in the past 2 days. Upon admission, patient was noted to be hypoxic at 82% on room air and hypercapnic with a PCO2 of 80. She was admitted for COPD exacerbation. No acute event overnight. Patient has been weaned off the BiPAP and is currently saturating well on 2 L of nasal cannula. She is O2 dependent and uses 2 L of home O2. She says that her breathing has improved overnight but feels like she is not at her baseline yet. She says that there has been a lot of renovation jobs at her home and she thinks he might have been exposed to a lot of dust and dirt at home. She denies chest pain. No fever chills. Reason For Visit: COPD EXACERBATION HYPERCAPNIC RESP FAILURE Physical Exam Vital Signs: Temp Pulse Resp BP Pulse Ox 98.0 F 68 20 188/64 H 93 06/29/18 15:38 06/29/18 15:38 06/29/18 15:38 06/29/18 15:38 06/29/18 15:38 Intake & Output 06/28/18 06/29/18 06/30/18 06:59 06:59 06:59 Intake Total 150 621 Balance 150 621 Weight 197 lb 12.074 oz General appearance: PRESENT: no acute distress, well-developed, well-nourished Head exam: PRESENT: atraumatic, normocephalic Eye exam: PRESENT: conjunctiva pink, EOMI, PERRLA. ABSENT: scleral icterus Ear exam: PRESENT: normal external ear exam Mouth exam: PRESENT: moist, tongue midline Neck exam: ABSENT: carotid bruit, JVD, lymphadenopathy, thyromegaly Respiratory exam: PRESENT: clear to auscultation wilfred, wheezes - Minimal occasional wheezes on the bases. ABSENT: rales, rhonchi Cardiovascular exam: PRESENT: RRR. ABSENT: diastolic murmur, rubs, systolic murmur Pulses: PRESENT: normal dorsalis pedis pul GI/Abdominal exam: PRESENT: normal bowel sounds, soft. ABSENT: distended, guarding, mass, organolmegaly, rebound, tenderness Rectal exam: PRESENT: deferred Neurological exam: PRESENT: alert, awake, oriented to person, oriented to place , oriented to time, oriented to situation, CN II-XII grossly intact. ABSENT: motor sensory deficit Results Laboratory Results: 06/29/18 06:27 12 06:27 18 18 06:27 06:27 WBC 6.7 RBC 5.48 H Hgb 15.9 H Hct 47.5 H MCV 87 MCH 29.1 MCHC 33.6 RDW 14.8 H Plt Count 146 L Seg Neutrophils % 89.6 H Lymphocytes % 8.7 L Monocytes % 1.3 L Eosinophils % 0.1 Basophils % 0.3 Absolute Neutrophils 6.0 Absolute Lymphocytes 0.6 Absolute Monocytes 0.1 Absolute Eosinophils 0.0 Absolute Basophils 0.0 Sodium 141.5 Potassium 4.0 Chloride 93 L Carbon Dioxide 39 H Anion Gap 10 BUN 18 Creatinine 0.57 Est GFR ( Amer) > 60 Est GFR (Non-Af Amer) > 60 Glucose 297 H Calcium 9.4 Impressions: Chest X-Ray 06/28/18 00:00 IMPRESSION: Cardiomegaly with no pulmonary edema. Assessment & Plan - Diagnosis (1) Acute respiratory failure with hypoxia and hypercapnia Is this a current diagnosis for this admission?: Yes Plan: Secondary to COPD exacerbation. As mentioned, patient has been weaned off BiPAP. Patient says she is currently not at her baseline breathing status. She is currently saturating well on 2 L of nasal cannula. We will switch IV steroids to prednisone. Will discontinue IV levofloxacin and switch to azithromycin. Continue breathing treatments with DuoNeb. (2) COPD exacerbation Is this a current diagnosis for this admission?: Yes Plan: As per #1. (3) Chronic combined systolic and diastolic CHF, NYHA class 2 Is this a current diagnosis for this admission?: Yes Plan: Not in exacerbation. Continue Lasix, lisinopril and Coreg. (4) Diabetes mellitus Is this a current diagnosis for this admission?: Yes Plan: Patient is not on diabetic medications. Her diabetes supposed to be diet- controlled but A1c ordered upon admission shows an A1c of 7.8. She will likely need to be resume on a new antidiabetic medication upon discharge. Continue sliding scale coverage for now. (5) Hypertension Is this a current diagnosis for this admission?: Yes Plan: Continue lisinopril and Coreg. - Time Time Spent with patient: 25-34 minutes
[2018-06-29] MEDS: INSULIN LISPRO 100 UNIT/ML 3 ML VIAL SUBCUT PRN ×2 (18:33→21:17)
[2018-06-29] MEDS: HYDRALAZINE HCL INJ/PF 20 MG/1 ML SDV IV PRN (18:35)
[2018-06-29] MEDS ORDERED: INSULIN REG, HUMAN 100 UNIT/ML 3 ML VIAL (PYX) IV ONE (21:30)
[2018-06-29] MEDS ORDERED: LEVOFLOXACIN 750 MG/D5W RTU 750 MG/150 ML RTUPB IV SCH (22:00)
[2018-06-30] MEDS: FLUTICASONE NASAL SPRAY 50 MCG/SPRY 120 SPRAY/16 GM NASL SCH ×2 (00:51→09:43)
[2018-06-30] MEDS: HYDRALAZINE HCL INJ/PF 20 MG/1 ML SDV IV PRN (01:06)
[2018-06-30] MEDS: HEPARIN SOD (PORCINE) 5,000 UNIT/ML 1 ML SYRINGE SUBCUT SCH ×2 (05:00→15:01)
[2018-06-30] MEDS: IPRATROPIUM/ALBUTEROL 0.5-2.5 MG/3 ML AMPUL NEB SCH ×2 (07:52→15:47)
[2018-06-30] MEDS: FUROSEMIDE 40 MG TABLET PO SCH (07:52)
[2018-06-30] MEDS: INSULIN LISPRO 100 UNIT/ML 3 ML VIAL SUBCUT PRN (07:53)
[2018-06-30] MEDS: CARVEDILOL 12.5 MG TABLET PO SCH (09:42)
[2018-06-30] MEDS: PREDNISONE 20 MG TABLET PO SCH (09:43)
[2018-06-30] MEDS: LISINOPRIL 10 MG TABLET PO SCH (09:43)
[2018-06-30] MEDS ORDERED: AZITHROMYCIN 250 MG TABLET PO SCH (10:00)
[2018-06-30 16:40] VITALS: BP 166/79
--- NOTE | 2018-07-02 17:36 | PDOC DISCHARGE SUMMARY ---
General - Admit/Disc Date/PCP Admission Date/Primary Care Provider: 06/28/18 23:12 MELVI LOPEZN Discharge Date: 06/30/18 - Discharge Diagnosis (1) Acute respiratory failure with hypoxia and hypercapnia Is this a current diagnosis for this admission?: Yes (2) COPD exacerbation Is this a current diagnosis for this admission?: Yes (3) Chronic combined systolic and diastolic CHF, NYHA class 2 Is this a current diagnosis for this admission?: Yes (4) Diabetes mellitus Is this a current diagnosis for this admission?: Yes (5) Hypertension Is this a current diagnosis for this admission?: Yes - Additional Information Resuscitation Status: Full Code Discharge Diet: Diabetic Discharge Activity: Balance Activity w/Rest Prescriptions: Fluticasone/Salmeterol [Fluticasone-Salmeterol 113-14] 1 each IH BID #1 aer.pow.[email or web address] Furosemide [Lasix 20 mg Tablet] 20 mg PO QAM #30 tablet Metformin HCl [Glucophage 500 mg Tablet] 500 mg PO BIDACBS #60 tab Prednisone [Deltasone 20 mg Tablet] 20 mg PO BID 5 Days #10 tablet Tiotropium [place] [Spiriva Handihaler 5 Cap/Kit (18 Mcg/Cap)] 1 cap IH DAILY # 5 capsule Home Medications: Carvedilol [Coreg 12.5 mg Tablet] 12.5 mg PO Q12 06/29/18 Fluticasone Propionate [Flonase Nasal [place] 50 Mcg/[place] 16 gm] 2 sprays NASL DAILY 06/29/18 Lisinopril [Prinivil] 10 mg PO DAILY 06/29/18 Carvedilol [Coreg 12.5 mg Tablet] 12.5 mg PO Q12 tablet 06/30/18 Fluticasone/Salmeterol [Fluticasone-Salmeterol 113-14] 1 each IH BID #1 aer.pow.[email or web address] 06/30/18 Furosemide [Lasix 20 mg Tablet] 20 mg PO QAM #30 tablet 06/30/18 Metformin HCl [Glucophage 500 mg Tablet] 500 mg PO BIDACBS #60 tab 06/30/18 Prednisone [Deltasone 20 mg Tablet] 20 mg PO BID 5 Days #10 tablet 06/30/18 Tiotropium [place] [Spiriva Handihaler 5 Cap/Kit (18 Mcg/Cap)] 1 cap IH DAILY # 5 capsule 06/30/18 History of Present Illness History of Present Illness: Admitting hospitalist's H&P: REMINGTON SILVA is a 63 year old female with a past medical history of systolic heart failure with an ejection fraction of 40-45%, moderate diastolic dysfunction, obstructive sleep apnea and COPD. Patient presents with 48 hours of shortness of breath and nonproductive cough. Denying chest pain palpitations nausea or vomiting. In the emergency room she is found to be severely hypoxic at 82% on room air and hypercapnic with a PCO2 of 80. She receives albuterol, Atrovent, supplemental oxygen but declines BiPAP. She is awake and alert stating tired but feels much better. Hospital Course Hospital Course: MS. SILVA is a 63 year old female with a past medical history of systolic heart failure with an ejection fraction of 40-45%, diabetes mellitus currently not on medication, grade 2 diastolic dysfunction, obstructive sleep apnea and COPD who presented with cough and worsening shortness of breath in the past 2 days. Upon admission, patient was noted to be hypoxic at 82% on room air and hypercapnic with a PCO2 of 80. She was admitted for COPD exacerbation. She says that there has been a lot of renovation jobs at her home and she thinks he might have been exposed to a lot of dust and dirt at home. She denies chest pain. No fever chills. She was started on IV steroids, antibiotics and breathing treatments. Patient gradually improved. She was only BiPAP dependent for tonight and was weaned off down to 2 L of O2. She is O2 dependent and uses 2 L of home O2. On day of discharge, patient had clear breath sounds. She returned to her baseline breathing status. She would be discharged on a short course of oral steroids. Physical Exam Vital Signs: Temp Pulse Resp BP Pulse Ox 98.7 F 72 18 166/79 H 98 06/30/18 16:34 06/30/18 16:34 06/30/18 16:34 06/30/18 16:34 06/30/18 16:34 General appearance: PRESENT: no acute distress, well-developed, well-nourished Head exam: PRESENT: atraumatic, normocephalic Eye exam: PRESENT: conjunctiva pink, EOMI, PERRLA. ABSENT: scleral icterus Ear exam: PRESENT: normal external ear exam Mouth exam: PRESENT: moist, tongue midline Neck exam: ABSENT: carotid bruit, JVD, lymphadenopathy, thyromegaly Respiratory exam: PRESENT: clear to auscultation wilfred. ABSENT: rales, rhonchi, wheezes Cardiovascular exam: PRESENT: RRR. ABSENT: diastolic murmur, rubs, systolic murmur Pulses: PRESENT: normal dorsalis pedis pul GI/Abdominal exam: PRESENT: normal bowel sounds, soft. ABSENT: distended, guarding, mass, organolmegaly, rebound, tenderness Rectal exam: PRESENT: deferred Neurological exam: PRESENT: alert, awake, oriented to person, oriented to place , oriented to time, oriented to situation, CN II-XII grossly intact. ABSENT: motor sensory deficit Results Laboratory Results: 06/29/18 06:27 06/29/18 06:27 Impressions: Chest X-Ray 06/28/18 00:00 IMPRESSION: Cardiomegaly with no pulmonary edema. Qualifiers - * PATIENT BEING DISCHARGED WITH ANY OF THE FOLLOWING DIAGNOSIS: No
== END 2018-06-30 17:58 | disposition home or self-care (01) | DRG 189 ==
LOC: ER 16:42 → EH 23:12 → 5 06-29 00:54
PROVIDERS: ADMIT Internal Medicine; ATTEND Internal Medicine
PROC: 5A09457 Assistance with Respiratory Ventilation, 24-96 Consecutive Hours, Continuous Positive Airway Pressure (ICD-10-PCS; principal; 2018-06-29)
DX: J96.01 Acute respiratory failure with hypoxia (principal); J44.1 Chronic obstructive pulmonary disease with (acute) exacerbation; I50.42 Chronic combined systolic (congestive) and diastolic (congestive) heart failure; J96.02 Acute respiratory failure with hypercapnia; I11.0 Hypertensive heart disease with heart failure; E11.9 Type 2 diabetes mellitus without complications; G47.33 Obstructive sleep apnea (adult) (pediatric); Z99.81 Dependence on supplemental oxygen; Z79.84 Long term (current) use of oral hypoglycemic drugs; Z90.49 Acquired absence of other specified parts of digestive tract; Z90.710 Acquired absence of both cervix and uterus; Z87.891 Personal history of nicotine dependence; Z88.6 Allergy status to analgesic agent; Z91.041 Radiographic dye allergy status; Z79.899 Other long term (current) drug therapy
CPT/HCPCS: 36415; 36600; 71045; 80048; 80053; 80307; 81001; 82550; 82553; 82803; 82962; 83036; 83880; 84443; 84484; 85025; 93005; 93010; 94640; 94660; 94667; 94799; 96374; 99285; J0360; J0456; J1815; J1956; J2930; J3490; J7512; J7620

== ENCOUNTER 2018-12-05 14:46 | Inpatient (IN) | payer MEDICARE ==
--- NOTE | 2018-12-05 15:35 | ER Document Report ---
ED General - General Chief Complaint: Chest Pain Stated Complaint: CHEST TIGHTNSS Time Seen by Provider: 12/05/18 15:34 Notes: Patient is a 63-year-old female with history of COPD and CHF that presents to the emergency department for chief complaint of shortness of breath, dyspnea on exertion, and orthopnea. Patient states that her symptoms started worsening over the past 24 hours, where she had leg swelling, increased work of breathing, and had to wear her 2 L nasal cannula all the time which is usually only as needed. She is noticed that her legs have been more swollen as well and she is concerned that she is retaining fluid. She does take Lasix 40 mg daily. She has not noticed some cough, but denies any fevers, chills, night sweats, nausea, vomiting or abdominal pain. She does admit to having some chest discomfort and chest pressure as well associated with the symptoms. Past Medical History: CHF, COPD, diabetes mellitus, hypertension Past Surgical History: Denies recent or pertinent surgical history Social History: Former smoker, denies alcohol or drug use. Family History: Reviewed and noncontributory for presenting illness Allergies: Reviewed, see documented allergy list. REVIEW OF SYSTEMS: Other than noted above, the 12 point review of systems was reviewed with the patient and were negative, all pertinent findings are included in the HPI. PHYSICAL EXAMINATION: Vital signs reviewed, nursing noted reviewed. GENERAL: Patient is in moderate respiratory distress, increased work of breathing. HEAD: Atraumatic, normocephalic. EYES: Eyes appear normal, extraocular movements intact, sclera anicteric, conjun ctiva are normal. ENT: nares patent, oropharynx clear without exudates. Moist mucous membranes. NECK: Normal range of motion, supple without lymphadenopathy LUNGS: Severely diminished lung sounds, faint wheezing noted, increased work of breathing. HEART: Regular rate and rhythm without murmurs ABDOMEN: Soft, nontender, normoactive bowel sounds. No rebound, guarding, or rigidity. No masses appreciated. EXTREMITIES: Bilateral lower extremity edema, to the proximal tibias, 1+. NEUROLOGICAL: No focal neurological deficits. Moves all extremities spontaneously Motor and sensory grossly intact on exam. PSYCH: Normal mood, normal affect. SKIN: Warm, Dry, normal turgor, stasis skin changes noted to the lower extremities bilaterally. TRAVEL OUTSIDE OF THE [place] IN LAST 30 DAYS: No - Related Data Allergies/Adverse Reactions: aspirin Allergy (Verified 06/28/18 17:14) Iodinated Contrast- Oral and IV Dye Allergy (Verified 06/28/18 17:14) Past Medical History - Social History Smoking Status: Former Smoker Family History: DM, Hypertension - Past Medical History Cardiac Medical History: Reports: Hx Congestive Heart Failure, Hx Hypercholesterolemia, Hx Hypertension Pulmonary Medical History: Reports: Hx Asthma, Hx COPD Endocrine Medical History: Reports: Hx Diabetes Mellitus Type 2 - under control w/o medication Renal/ Medical History: Denies: Hx Peritoneal Dialysis Past Surgical History: Reports: Hx Appendectomy, Hx Breast Surgery - biopsy, Hx Cholecystectomy, Hx Hysterectomy, Hx Tonsillectomy - Immunizations Immunizations up to date: Yes Hx Diphtheria, Pertussis, Tetanus Vaccination: Yes Physical Exam - Vital signs Vitals: Resp Pulse Ox 25 H 98 12/05/18 15:13 12/05/18 15:13 Course - Re-evaluation Re-evalutation: Patient seen and examined vital signs reviewed. Laboratory data and imaging were ordered as appropriate for the patient's presenting symptoms and complaint, with consideration of any critical or life threatening conditions that may be associated with their obtained history and exam as noted above. Patient was treated with DuoNeb breathing treatments, placed on supplemental oxygen, and started on IV nitroglycerin due to the chest pain she was having with marked hypertension, and concern for acute exacerbation of CHF, as well as COPD on top of that. Results were reviewed when available and demonstrated chest x-ray was negative with exception of cardiomegaly, but no significant pulmonary edema, no leukocytosis, ABG was ordered that demonstrated hypercapnia, with metabolic compensation The patient was re-evaluated and was improved to degree after the DuoNeb's, and starting the nitroglycerin infusion but still requiring supplemental oxygen Evaluation was most consistent with acute exacerbation of COPD, hypertensive urgency Results were discussed with the patient at this point after careful consideration I feel that that patient should be admitted to the hospital. This was discussed with the patient that it is in the best interest for their care to be admitted for further evaluation and management. Patient agreed with this plan of care. A call was placed to the admitted physician, Dr. York who graciously accepted the patient onto their service. Jaylen did stop the IV nitroglycerin and placed the patient on Nitropaste, and patient will be admitted to the [facility]. *Note is created using voice recognition software and may contain spelling, syntax or grammatical errors. Laboratory 12/05/18 12/05/18 12/05/18 15:18 15:18 15:18 WBC 5.9 RBC 5.43 H Hgb 15.0 Hct 46.0 MCV 85 MCH 27.7 MCHC 32.7 RDW 14.2 H Plt Count 160 Seg Neutrophils % 68.1 Lymphocytes % 20.9 Monocytes % 8.4 Eosinophils % 1.9 Basophils % 0.7 Absolute Neutrophils 4.0 Absolute Lymphocytes 1.2 Absolute Monocytes 0.5 Absolute Eosinophils 0.1 Absolute Basophils 0.0 Carbonic Acid HCO3/H2CO3 Ratio ABG pH ABG pCO2 ABG pO2 ABG HCO3 ABG Total CO2 ABG O2 Saturation ABG Base Excess FiO2 Sodium 143.3 Potassium 3.6 Chloride 93 L Carbon Dioxide 43 H* Anion Gap 7 BUN 23 H Creatinine 0.75 Est GFR ( Amer) > 60 Est GFR (Non-Af Amer) > 60 Glucose 141 H Calcium 9.7 Total Bilirubin 0.4 Direct Bilirubin 0.2 Neonat Total Bilirubin Not Reportable Neonat Direct Bilirubin Not Reportable Neonat Indirect Bili Not Reportable AST 18 ALT 23 Alkaline Phosphatase 94 Creatine Kinase 38 CK-MB (CK-2) 0.62 Troponin I < 0.012 NT-Pro-B Natriuret Pep 317 Total Protein 6.8 Albumin 3.9 12/05/18 17:05 WBC RBC Hgb Hct MCV MCH MCHC RDW Plt Count Seg Neutrophils % Lymphocytes % Monocytes % Eosinophils % Basophils % Absolute Neutrophils Absolute Lymphocytes Absolute Monocytes Absolute Eosinophils Absolute Basophils Carbonic Acid 2.03 H HCO3/H2CO3 Ratio 20:1 ABG pH 7.40 ABG pCO2 67.5 H ABG pO2 73.5 L ABG HCO3 41.3 H ABG Total CO2 43.3 H ABG O2 Saturation 94.3 ABG Base Excess 12.9 FiO2 3L Sodium Potassium Chloride Carbon Dioxide Anion Gap BUN Creatinine Est GFR ( Amer) Est GFR (Non-Af Amer) Glucose Calcium Total Bilirubin Direct Bilirubin Neonat Total Bilirubin Neonat Direct Bilirubin Neonat Indirect Bili AST ALT Alkaline Phosphatase Creatine Kinase CK-MB (CK-2) Troponin I NT-Pro-B Natriuret Pep Total Protein Albumin Chest X-Ray 12/05/18 15:35 IMPRESSION: HEART ENLARGED WITHOUT FAILURE. NO OTHER SIGNIFICANT RADIOGRAPHIC FINDING IN THE CHEST. - Vital Signs Vital signs: Temp Pulse Resp BP Pulse Ox 97.8 F 74 27 H 172/65 H 94 12/05/18 19:37 12/05/18 19:37 12/05/18 20:00 12/05/18 19:46 12/05/18 20:00 - Laboratory Result Diagrams: 12/05/18 15:18 12/05/18 15:18 Laboratory results interpreted by me: 12/05/18 12/05/18 12/05/18 15:18 15:18 17:05 RBC 5.43 H RDW 14.2 H Carbonic Acid 2.03 H ABG pCO2 67.5 H ABG pO2 73.5 L ABG HCO3 41.3 H ABG Total CO2 43.3 H Chloride 93 L Carbon Dioxide 43 H* BUN 23 H Glucose 141 H - EKG Interpretation by Me Additional EKG results interpreted by me: EKG demonstrates sinus rhythm with a ventricular rate of 57 bpm, normal axis, QTC 460 ms, there is a single T wave inversion in lead aVL, no ST elevation, this is compared with a prior EKG from 06/28/2018, without significant change. Critical Care Note - Critical Care Note Total time excluding time spent on procedures (mins): 35 Comments: Critical care time 35 minutes exclusive from separate billable procedures for a patient requiring complex medical decision making, and high potential for clinical deterioration. In a patient with acute on chronic respiratory failure, requiring submental oxygen, and placed on nitroglycerin infusion, for her marketed hypertension, and worsening CHF.. Time spent obtaining history from patient or surrogate, discussions with consultants, development of treatment plan with patient or surrogate, evaluation of patient's response to treatment, examination of patient, ordering and performing treatments and interventions, ordering and review of laboratory studies, re-evaluation of patient's condition, ordering and review of radiographic studies and review of old charts Discharge - Discharge Clinical Impression: Acute respiratory failure with hypoxia and hypercapnia, Hypertensive urgency Acute congestive heart failure Qualifiers: Heart failure type: systolic Qualified Code(s): I50.21 - Acute systolic (congestive) heart failure Condition: Stable Disposition: ADMITTED INPATIENT Admitting Provider: Jaylen (Hospitalist) Unit Admitted: [facility]
[2018-12-05] MEDS ORDERED: NITROGLYCERIN 0.4 MG/TAB 25 TAB/BOTTLE SL ONE (15:37)
[2018-12-05 15:46] LABS: ABSOLUTE EOSINOPHILS # (AUTO) 0.1 10^3/uL (0.0-0.6); ABSOLUTE LYMPHOCYTES (AUTO) 1.2 10^3/uL (0.5-4.7); ABSOLUTE MONOCYTES (AUTO) 0.5 10^3/uL (0.1-1.4); BASOPHILS % (AUTO) 0.7 % (0-2); EOSINOPHILS % (AUTO) 1.9 % (0-6); LYMPHOCYTES % (AUTO) 20.9 % (13-45); MEAN CORPUSCULAR HEMOGLOBIN 27.7 pg (27.0-33.4); MEAN CORPUSCULAR HGB CONC 32.7 g/dL (32.0-36.0); MEAN CORPUSCULAR VOLUME 85 fl (80-97); MONOCYTES % (AUTO) 8.4 % (3-13); PLATELET COUNT 160 10^3/uL (150-450); RED BLOOD COUNT 5.43 10^6/uL (3.72-5.28); RED CELL DISTRIBUTION WIDTH 14.2 % (11.5-14.0); SEGMENTED NEUTROPHILS % (AUTO) 68.1 % (42-78); TOTAL CELLS COUNTED % (AUTO) 100 %; WHITE BLOOD COUNT 5.9 10^3/uL (4.0-10.5)
[2018-12-05] MEDS ORDERED: IPRATROPIUM/ALBUTEROL 0.5-2.5 MG/3 ML AMPUL NEB ONE (15:50)
[2018-12-05] MEDS ORDERED: NITROGLYCERIN/D5W 50 MG/250 ML RTUINJ IV PRN (15:50)
[2018-12-05] MEDS ORDERED: FUROSEMIDE INJ/PF 40 MG/4 ML SDV IV ONE (15:51)
[2018-12-05 16:02] LABS: ALANINE AMINOTRANSFERASE 23 U/L (9-52); ALBUMIN 3.9 g/dL (3.5-5.0); ALKALINE PHOSPHATASE 94 U/L (38-126); ASPARTATE AMINO TRANSFERASE 18 U/L (14-36); BILIRUBIN,DIRECT 0.2 mg/dL (0.0-0.4); BILIRUBIN,TOTAL 0.4 mg/dL (0.2-1.3); BLOOD UREA NITROGEN 23 mg/dL (7-20); CALCIUM 9.7 mg/dL (8.4-10.2); CHLORIDE 93 mmol/L (98-107); CREATINE KINASE 38 U/L (30-135); GLUCOSE 141 mg/dL (75-110); POTASSIUM 3.6 mmol/L (3.6-5.0); SODIUM 143.3 mmol/L (137-145); TOTAL PROTEIN 6.8 g/dL (6.3-8.2)
--- NOTE | 2018-12-05 16:02 | RADIOLOGY REPORT (SQ) ---
EXAM DESCRIPTION: CHEST SINGLE VIEW COMPLETED DATE/TIME: 12/05/2018 3:51 pm REASON FOR STUDY: SHORTNESS OF BREATH COMPARISON: 06/28/2018 NUMBER OF VIEWS: One view. TECHNIQUE: Single frontal radiographic view of the chest acquired. LIMITATIONS: None. FINDINGS: LUNGS AND PLEURA: No opacities, masses or pneumothorax. No pleural effusion. MEDIASTINUM AND HILAR STRUCTURES: No masses. Contour normal. HEART AND VASCULAR STRUCTURES: Heart enlarged without failure. Normal vasculature. BONES: No acute findings. HARDWARE: None in the chest. OTHER: No other significant finding. IMPRESSION: HEART ENLARGED WITHOUT FAILURE. NO OTHER SIGNIFICANT RADIOGRAPHIC FINDING IN THE CHEST. TECHNICAL DOCUMENTATION: JOB ID: [id number] [employer]- All Rights Reserved Reading location - IP/workstation name: [email or web address]
[2018-12-05 16:11] LABS: CREATINE KINASE MB 0.62 ng/mL (<4.55); NT PRO BNP 317 pg/mL (5-900)
[2018-12-05 16:12] LABS: ANION GAP 7 (5-19)
[2018-12-05 16:13] LABS: TROPONIN I < 0.012 ng/mL
[2018-12-05 16:15] LABS: CARBON DIOXIDE 43 mmol/L (22-30)
--- NOTE | 2018-12-05 16:38 | EKG REPORT ---
SEVERITY:- NORMAL ECG - SINUS RHYTHM : Confirmed by: Kyle Cleary MD 05-Dec-2018 16:36:50
[2018-12-05] MEDS ORDERED: METHYLPREDNISOLONE INJ 40 MG/1 ML SDV IV ONE (17:03)
[2018-12-05 17:30] LABS: ARTERIAL BLOOD BASE EXCESS 12.9 mmol/L; ARTERIAL BLOOD H2CO3 2.03 mmol/L (1.05-1.35); ARTERIAL BLOOD HCO3 41.3 mmol/L (20-24); ARTERIAL BLOOD O2 SATURATION 94.3 % (94-98); ARTERIAL BLOOD PCO2 67.5 mmHg (35-45); ARTERIAL BLOOD PO2 73.5 mmHg (80-100); ARTERIAL BLOOD TOTAL CO2 43.3 mmol/L (21-25)
[2018-12-05 17:47] LABS: ARTERIAL BLOOD FIO2 3L
[2018-12-05] MEDS ORDERED: (PENDING PHARMACY ID) (Fluticasone/Salmeterol [Fluticasone-Salmeterol 113-14] 1 EACH) IH SCH (18:00)
--- NOTE | 2018-12-05 18:01 | ADVANCED CARE ---
- Diagnosis (1) COPD exacerbation Diagnosis Current: Yes (2) Hypertensive urgency Diagnosis Current: Yes Resuscitation Status: Full Code Discussion: At first she says she did not want to be intubated, but when we talked about chest compressions and electrical shocks she said that she wanted that. After she said she wanted to be resuscitated, I confirmed with her that she wanted to be resuscitated but not intubated, and then she changed her mind and said that she would be intubated as long as it was not for an extended period of time. She said that her son Daniel would be her medical proxy. Time Spent: 10 minutes
--- NOTE | 2018-12-05 18:12 | PDOC H&P ---
History of Present Illness Admission Date/PCP: 12/05/18 17:28 SHIKHA DUGGAN PA-C History of Present Illness: REMINGTON SILVA is a 63 year old female with a history of oxygen dependent COPD who began to feel a sensation of chest tightness yesterday along with trouble breathing. She said she felt like she was having a hard time getting a deep breath in. She said as a result she could not lay down flat in bed and sat up on a couch last night to sleep. She is had some intermittent swelling in her legs that has come and gone. Her exercise tolerance has decreased. She said it feels like when she was admitted after some work was being done on her house and she had a COPD exacerbation. She says she has had no changes in her medications recently. She does not recall being around anyone that she knows to be sick. She has not had any fevers or chills. No cough. No sputum production. She began to feel better after about 3-4 nebulizer treatments in the ER. Her blood pressure was substantially elevated in the ER and they put her on a nitroglycerin drip. She says that until that point she did not know that her blood pressure was elevated. She had not been having any headaches or visual disturbances. She says that the chest tightness responded to the nebulizer treatments. She does not have any pain with inspiration. Past Medical History Cardiac Medical History: Reports: Congestive Heart Failure, Hyperlipidema, Hypertension Pulmonary Medical History: Reports: Asthma, Chronic Obstructive Pulmonary Dis ease (COPD) Endocrine Medical History: Reports: Diabetes Mellitus Type 2 - under control w/o medication Past Surgical History Past Surgical History: Reports: Appendectomy, Cholecystectomy, Hysterectomy, Tonsillectomy Social History Information Source: Patient Lives with: Alone Smoking Status: Former Smoker Frequency of Alcohol Use: Occasional Hx Recreational Drug Use: No Drugs: None Hx Prescription Drug Abuse: No - Advance Directive Resuscitation Status: Full Code Family History Family History: DM, Hypertension Parental Family History Reviewed: Yes - Hypertension Children Family History Reviewed: Yes - Hypertension, diabetes Sibling(s) Family History Reviewed.: Unknown Medication/Allergy Home Medications: Lisinopril [Prinivil] 10 mg PO DAILY 06/29/18 Carvedilol [Coreg 12.5 mg Tablet] 12.5 mg PO Q12 tablet 06/30/18 Furosemide [Lasix 20 mg Tablet] 20 mg PO QAM #30 tablet 06/30/18 Metformin HCl [Metformin HCl ER] 500 mg PO 12/05/18 Allergies/Adverse Reactions: aspirin Allergy (Verified 06/28/18 17:14) Iodinated Contrast- Oral and IV Dye Allergy (Verified 06/28/18 17:14) Review of Systems All systems: reviewed and no additional remarkable complaints except as stated - All systems were reviewed and were negative except as noted above in the HPI Physical Exam Vital Signs: Temp Pulse Resp BP Pulse Ox 18 198/98 H 95 12/05/18 15:49 12/05/18 15:49 12/05/18 15:49 Intake & Output 12/04/18 12/05/18 12/06/18 06:59 06:59 06:59 Intake Total 1 Balance 1 Weight 87.27 kg General appearance: PRESENT: no acute distress, cooperative, disheveled, morbidly obese Head exam: PRESENT: atraumatic, normocephalic Eye exam: PRESENT: EOMI, PERRLA. ABSENT: conjunctival injection, nystagmus, scleral icterus Ear exam: PRESENT: normal external ear exam Mouth exam: PRESENT: moist, neck supple Throat exam: ABSENT: post pharyngeal erythema Neck exam: PRESENT: full ROM. ABSENT: carotid bruit, JVD, lymphadenopathy, meningismus, tenderness, thyromegaly Respiratory exam: PRESENT: decreased breath sounds, prolonged expiratory phas, symmetrical, unlabored, wheezes. ABSENT: accessory muscle use, chest wall tenderness, rales, rhonchi, tachypnea Cardiovascular exam: PRESENT: RRR, +S1, +S2. ABSENT: diastolic murmur, systolic murmur Pulses: PRESENT: normal carotid pulses Vascular exam: PRESENT: normal capillary refill GI/Abdominal exam: PRESENT: normal bowel sounds, soft. ABSENT: distended, guarding, rebound, tenderness Extremities exam: PRESENT: other - She had trace pitting ankle edema bilaterally, along with hemosiderin deposition in the distal third of her legs below the knee and proximal to ankle. ABSENT: clubbing, pedal edema Musculoskeletal exam: PRESENT: normal inspection. ABSENT: deformity Neurological exam: PRESENT: alert, awake, oriented to person, oriented to place, oriented to time, oriented to situation, CN II-XII grossly intact. ABSENT: motor sensory deficit Psychiatric exam: PRESENT: appropriate affect, normal mood Skin exam: PRESENT: dry, warm Results Laboratory Results: 12/05/18 15:18 12/05/18 15:18 12/05/18 12/05/18 12/05/18 15:18 15:18 17:05 WBC 5.9 RBC 5.43 H Hgb 15.0 Hct 46.0 MCV 85 MCH 27.7 MCHC 32.7 RDW 14.2 H Plt Count 160 Seg Neutrophils % 68.1 Lymphocytes % 20.9 Monocytes % 8.4 Eosinophils % 1.9 Basophils % 0.7 Absolute Neutrophils 4.0 Absolute Lymphocytes 1.2 Absolute Monocytes 0.5 Absolute Eosinophils 0.1 Absolute Basophils 0.0 Carbonic Acid 2.03 H HCO3/H2CO3 Ratio 20:1 ABG pH 7.40 ABG pCO2 67.5 H ABG pO2 73.5 L ABG HCO3 41.3 H ABG O2 Saturation 94.3 ABG Base Excess 12.9 FiO2 3L Sodium 143.3 Potassium 3.6 Chloride 93 L Carbon Dioxide 43 H* Anion Gap 7 BUN 23 H Creatinine 0.75 Est GFR ( Amer) > 60 Est GFR (Non-Af Amer) > 60 Glucose 141 H Calcium 9.7 Total Bilirubin 0.4 AST 18 ALT 23 Alkaline Phosphatase 94 Total Protein 6.8 Albumin 3.9 12/05/18 12/05/18 15:18 15:18 Creatine Kinase 38 CK-MB (CK-2) 0.62 Troponin I < 0.012 NT-Pro-B Natriuret Pep 317 Impressions: Chest X-Ray 12/05/18 15:35 IMPRESSION: HEART ENLARGED WITHOUT FAILURE. NO OTHER SIGNIFICANT RADIOGRAPHIC FINDING IN THE CHEST. Assessment and Plan - Diagnosis (1) COPD exacerbation Is this a current diagnosis for this admission?: Yes Plan: We will continue her home O2. We will give her IV Solu-Medrol. We will do Xopenex nebulizer treatments every 4 hours. We will continue her home medications for COPD. (2) Hypertensive urgency Is this a current diagnosis for this admission?: Yes Plan: Suspect this is reactive to her bronchospasm. Nothing else was tried in the ER before the nitroglycerin drip, so I am going to put some nitroglycerin paste on her, continue her home medications, with the exception of a small increase in her lisinopril. I am also going to add some as needed hydralazine. We will monitor her response and adjust accordingly. Hopefully this will do well enough that she will not have to go to the ICU on some sort of antihypertensive drip. (3) Diabetes mellitus Qualifiers: Diabetes mellitus type: type 2 Diabetes mellitus terminal system operator insulin use: without terminal system operator use Diabetes mellitus complication status: without complication Qualified Code(s): E11.9 - Type 2 diabetes mellitus without complications Is this a current diagnosis for this admission?: Yes Plan: We will continue her metformin. We may need to add a sliding scale if the steroids make her blood sugars go up. - Time Time Spent with patient: 70 minutes Time Spent with patient: 35 or more minutes - Inpatient Certification Based on my medical assessment, after consideration of the patient's c omorbidities, presenting symptoms, or acuity I expect that the services needed warrant INPATIENT care.: Yes I certify that my determination is in accordance with my understanding of Medicare's requirements for reasonable and necessary INPATIENT services [42 CFR 412.3e].: Yes Medical Necessity: Need Close Monitoring Due to Risk of Patient Decompensation, Need For Continuous Telemetry Monitoring, Need for Nebulizer Therapy and Monitoring of Response, Risk of Complication if Not Cared For in Hospital
[2018-12-05] MEDS: NITROGLYCERIN 2% OINTMENT 1 GM PACKET TP SCH (18:23)
[2018-12-05] MEDS: HYDRALAZINE HCL INJ/PF 20 MG/1 ML SDV IV PRN (18:25)
[2018-12-05] MEDS: LEVALBUTEROL HCL NEB 1.25 MG/3 ML AMPUL NEB SCH ×2 (22:00→23:53)
[2018-12-05] MEDS: CARVEDILOL 12.5 MG TABLET PO SCH (22:23)
[2018-12-05] MEDS: METHYLPREDNISOLONE INJ 125 MG/2 ML SDV IV SCH (22:23)
[2018-12-05] MEDS: HEPARIN SOD (PORCINE) 5,000 UNIT/ML 1 ML SYRINGE SUBCUT SCH (22:24)
[2018-12-06] MEDS: ACETAMINOPHEN 325 MG TABLET PO PRN ×3 (00:33→20:20)
[2018-12-06] MEDS: NITROGLYCERIN 2% OINTMENT 1 GM PACKET TP SCH ×5 (00:34→23:54)
[2018-12-06] MEDS: LEVALBUTEROL HCL NEB 1.25 MG/3 ML AMPUL NEB SCH ×5 (03:54→20:14)
[2018-12-06 05:51] LABS: HEMATOCRIT 46.7 % (36.0-47.0); HEMOGLOBIN 15.5 g/dL (12.0-15.5); MEAN CORPUSCULAR HEMOGLOBIN 28.2 pg (27.0-33.4); MEAN CORPUSCULAR HGB CONC 33.2 g/dL (32.0-36.0); MEAN CORPUSCULAR VOLUME 85 fl (80-97); PLATELET COUNT 151 10^3/uL (150-450); RED BLOOD COUNT 5.51 10^6/uL (3.72-5.28); WHITE BLOOD COUNT 6.5 10^3/uL (4.0-10.5)
[2018-12-06] MEDS: HEPARIN SOD (PORCINE) 5,000 UNIT/ML 1 ML SYRINGE SUBCUT SCH ×3 (06:19→21:57)
[2018-12-06] MEDS: METHYLPREDNISOLONE INJ 125 MG/2 ML SDV IV SCH (06:20)
[2018-12-06 06:44] LABS: ANION GAP 10 (5-19); BLOOD UREA NITROGEN 29 mg/dL (7-20); CALCIUM 9.5 mg/dL (8.4-10.2); CARBON DIOXIDE 38 mmol/L (22-30); CHLORIDE 92 mmol/L (98-107); GLUCOSE 313 mg/dL (75-110); POTASSIUM 4.2 mmol/L (3.6-5.0); SODIUM 140.2 mmol/L (137-145)
[2018-12-06] MEDS: FUROSEMIDE 20 MG TABLET PO SCH (07:20)
[2018-12-06] MEDS: HYDRALAZINE HCL INJ/PF 20 MG/1 ML SDV IV PRN (07:20)
[2018-12-06] MEDS: METFORMIN HCL 500 MG TABLET PO SCH ×2 (07:20→16:06)
--- NOTE | 2018-12-06 09:10 | PDOC PROGRESS REPORT ---
Subjective Progress Note for:: 12/06/18 Subjective:: 63 year old female with a history of oxygen dependent COPD who began to feel a sensation of chest tightness yesterday along with trouble breathing. She said she felt like she was having a hard time getting a deep breath in. She said as a result she could not lay down flat in bed and sat up on a couch last night to sleep. She is had some intermittent swelling in her legs that has come and gone. Her exercise tolerance has decreased. She said it feels like when she was admitted after some work was being done on her house and she had a COPD exacerbation. She says she has had no changes in her medications recently. She does not recall being around anyone that she knows to be sick. She has not had any fevers or chills. No cough. No sputum production. She began to feel better after about 3-4 nebulizer treatments in the ER. Her blood pressure was substantially elevated in the ER and they put her on a nitroglycerin drip. She says that until that point she did not know that her blood pressure was elevated. She had not been having any headaches or visual disturbances. She says that the chest tightness responded to the nebulizer treatments. She does not have any pain with inspiration. 12/[id number]-gykx-old female with history of COPD and questionable congestive heart failure admitted for COPD exacerbation with CO2 retention and also blood p ressure was found to be systolic more than 250 in the ER. She was started on nitroglycerin drip in the emergency room the later on medication was switched to p.o. and the latest blood pressure is 156/54. Patient is comfortable in the bed communicating well not in distress. Pulse ox is 94% on 3 L. Reason For Visit: ACUTE RESPIRATORY FAILURE WITH HYPOXIA AND HYPERCA Physical Exam Vital Signs: Temp Pulse Resp BP Pulse Ox 97.4 F 76 20 156/54 H 94 12/06/18 03:02 12/06/18 07:09 12/06/18 07:09 12/06/18 08:23 12/06/18 07:09 Intake & Output 12/05/18 12/06/18 12/07/18 06:59 06:59 06:59 Intake Total 6 Balance 6 Weight 80.3 kg General appearance: PRESENT: no acute distress, obese Head exam: PRESENT: atraumatic Eye exam: PRESENT: PERRLA Mouth exam: PRESENT: moist, tongue midline Teeth exam: PRESENT: poor dentation Neck exam: ABSENT: carotid bruit, JVD, lymphadenopathy, thyromegaly Respiratory exam: PRESENT: clear to auscultation wilfred. ABSENT: rales, rhonchi, wheezes Cardiovascular exam: PRESENT: RRR. ABSENT: diastolic murmur, rubs, systolic murmur GI/Abdominal exam: PRESENT: normal bowel sounds, soft. ABSENT: distended, guard ing, mass, organolmegaly, rebound, tenderness Rectal exam: PRESENT: deferred Extremities exam: PRESENT: full ROM. ABSENT: calf tenderness, clubbing, pedal edema Neurological exam: PRESENT: alert, awake, oriented to person, oriented to place, oriented to time, oriented to situation, CN II-XII grossly intact. ABSENT: motor sensory deficit Psychiatric exam: PRESENT: appropriate affect, normal mood. ABSENT: homicidal ideation, suicidal ideation Results Laboratory Results: 12/06/18 05:06 12/06/18 05:06 12/05/18 12/05/18 12/05/18 15:18 15:18 17:05 WBC 5.9 RBC 5.43 H Hgb 15.0 Hct 46.0 MCV 85 MCH 27.7 MCHC 32.7 RDW 14.2 H Plt Count 160 Seg Neutrophils % 68.1 Lymphocytes % 20.9 Monocytes % 8.4 Eosinophils % 1.9 Basophils % 0.7 Absolute Neutrophils 4.0 Absolute Lymphocytes 1.2 Absolute Monocytes 0.5 Absolute Eosinophils 0.1 Absolute Basophils 0.0 Carbonic Acid 2.03 H HCO3/H2CO3 Ratio 20:1 ABG pH 7.40 ABG pCO2 67.5 H ABG pO2 73.5 L ABG HCO3 41.3 H ABG O2 Saturation 94.3 ABG Base Excess 12.9 FiO2 3L Sodium 143.3 Potassium 3.6 Chloride 93 L Carbon Dioxide 43 H* Anion Gap 7 BUN 23 H Creatinine 0.75 Est GFR ( Amer) > 60 Est GFR (Non-Af Amer) > 60 Glucose 141 H Calcium 9.7 Total Bilirubin 0.4 AST 18 ALT 23 Alkaline Phosphatase 94 Total Protein 6.8 Albumin 3.9 12/06/18 12/06/18 05:06 05:06 WBC 6.5 RBC 5.51 H Hgb 15.5 Hct 46.7 MCV 85 MCH 28.2 MCHC 33.2 RDW 14.0 Plt Count 151 Seg Neutrophils % Lymphocytes % Monocytes % Eosinophils % Basophils % Absolute Neutrophils Absolute Lymphocytes Absolute Monocytes Absolute Eosinophils Absolute Basophils Carbonic Acid HCO3/H2CO3 Ratio ABG pH ABG pCO2 ABG pO2 ABG HCO3 ABG O2 Saturation ABG Base Excess FiO2 Sodium 140.2 Potassium 4.2 Chloride 92 L Carbon Dioxide 38 H Anion Gap 10 BUN 29 H Creatinine 0.82 Est GFR ( Amer) > 60 Est GFR (Non-Af Amer) > 60 Glucose 313 H Calcium 9.5 Total Bilirubin AST ALT Alkaline Phosphatase Total Protein Albumin 12/05/18 12/05/18 12/05/18 15:18 15:18 20:00 Creatine Kinase 38 CK-MB (CK-2) 0.62 Troponin I < 0.012 < 0.012 NT-Pro-B Natriuret Pep 317 Impressions: Chest X-Ray 12/05/18 15:35 IMPRESSION: HEART ENLARGED WITHOUT FAILURE. NO OTHER SIGNIFICANT RADIOGRAPHIC FINDING IN THE CHEST. Assessment and Plan - Diagnosis (1) COPD exacerbation Is this a current diagnosis for this admission?: Yes Plan: We will continue her home O2. We will give her IV Solu-Medrol. We will do Xopenex nebulizer treatments every 4 hours. We will continue her home medications for COPD. 12/06/2018-patient is on home oxygen plan is to continue the oxygen sup plementation here on IV Solu-Medrol 125 mg every 8 hours plan was to decrease the dose to 40 mg every 8 hours. Plan to continue Xopenex nebulizations every 4 as needed. pulse today is 94% on 3 L. (2) Hypertensive urgency Is this a current diagnosis for this admission?: Yes Plan: Suspect this is reactive to her bronchospasm. Nothing else was tried in the ER before the nitroglycerin drip, so I am going to put some nitroglycerin paste on her, continue her home medications, with the exception of a small increase in her lisinopril. I am also going to add some as needed hydralazine. We will monitor her response and adjust accordingly. Hopefully this will do well enough that she will not have to go to the ICU on some sort of antihypertensive drip. 12/06/2018 patient came in with hypertensive emergency systolic blood pressure is 256 in the emergency room. She was started on nitroglycerin drip. Most likely secondary to COPD exacerbation and bronchospasm. She was placed back on her home medications. Blood pressure today is 156/54. BNP is 379 admission cardiac enzymes are negative. Plan is to continue the present management. (3) Diabetes Is this a current diagnosis for this admission?: No Plan: 12/06/2018-patient has history of type 2 diabetes mellitus latest blood sugars 319 presently on Solu-Medrol 125 mg every 8 hours. To check hemoglobin A1c tomorrow morning. Diet exercise complete medications were discussed and dietary consult was requested. (4) Chronic combined systolic and diastolic CHF, NYHA class 2 Is this a current diagnosis for this admission?: No Plan: 12/06/2018-patient has history of combined systolic and diastolic heart failure. The latest test echocardiogram was done in February 2018 indicates left ventricular ejection fraction is 40 to 45% and mild to moderate diastolic dysfunction. Chest x-ray shows cardiomegaly, BNP is 317 patient is euvolemic. - Time Time Spent with patient: 25-34 minutes Medications reviewed and adjusted accordingly: Yes Anticipated discharge: Home
[2018-12-06] MEDS: LISINOPRIL 10 MG TABLET PO SCH (09:15)
[2018-12-06] MEDS: TIOTROPIUM BROMIDE DPI 5 CAP/KIT (18 MCG/CAP) IH SCH (09:15)
[2018-12-06] MEDS: CARVEDILOL 12.5 MG TABLET PO SCH ×2 (09:15→21:57)
[2018-12-06] MEDS: FLUTICASONE NASAL SPRAY 50 MCG/SPRY 120 SPRAY/16 GM NASL SCH (09:16)
[2018-12-06] MEDS: METHYLPREDNISOLONE INJ 40 MG/1 ML SDV IV SCH ×2 (13:53→21:57)
[2018-12-06] MEDS ORDERED: METHYLPREDNISOLONE INJ 125 MG/2 ML SDV IV SCH (14:00)
[2018-12-06] MEDS ORDERED: AMLODIPINE BESYLATE 5 MG TABLET PO SCH (22:00)
[2018-12-07] MEDS: LEVALBUTEROL HCL NEB 1.25 MG/3 ML AMPUL NEB SCH ×6 (00:23→20:27)
[2018-12-07] MEDS: METHYLPREDNISOLONE INJ 40 MG/1 ML SDV IV SCH ×3 (05:19→21:36)
[2018-12-07] MEDS: NITROGLYCERIN 2% OINTMENT 1 GM PACKET TP SCH ×3 (05:20→17:59)
[2018-12-07] MEDS: HEPARIN SOD (PORCINE) 5,000 UNIT/ML 1 ML SYRINGE SUBCUT SCH ×3 (05:20→21:38)
[2018-12-07 05:35] LABS: HEMATOCRIT 45.9 % (36.0-47.0); HEMOGLOBIN 15.2 g/dL (12.0-15.5); MEAN CORPUSCULAR HEMOGLOBIN 28.1 pg (27.0-33.4); MEAN CORPUSCULAR HGB CONC 33.2 g/dL (32.0-36.0); MEAN CORPUSCULAR VOLUME 85 fl (80-97); PLATELET COUNT 166 10^3/uL (150-450); RED BLOOD COUNT 5.42 10^6/uL (3.72-5.28); RED CELL DISTRIBUTION WIDTH 14.5 % (11.5-14.0); WHITE BLOOD COUNT 10.6 10^3/uL (4.0-10.5)
[2018-12-07 05:51] LABS: ALANINE AMINOTRANSFERASE 19 U/L (9-52); ALBUMIN 3.9 g/dL (3.5-5.0); ALKALINE PHOSPHATASE 79 U/L (38-126); ASPARTATE AMINO TRANSFERASE 16 U/L (14-36); BILIRUBIN,DIRECT 0.3 mg/dL (0.0-0.4); BILIRUBIN,TOTAL 0.3 mg/dL (0.2-1.3); BLOOD UREA NITROGEN 43 mg/dL (7-20); CALCIUM 9.5 mg/dL (8.4-10.2); CHLORIDE 89 mmol/L (98-107); GLUCOSE 340 mg/dL (75-110); SODIUM 138.2 mmol/L (137-145); TOTAL PROTEIN 6.9 g/dL (6.3-8.2)
[2018-12-07 05:58] LABS: ANION GAP 10 (5-19)
[2018-12-07 06:04] LABS: CARBON DIOXIDE 39 mmol/L (22-30)
[2018-12-07] MEDS ORDERED: DEXTROSE 50%-WATER 25 GM/50 ML DISP.SYRIN IV PRN ×2 (07:51)
[2018-12-07] MEDS ORDERED: DEXTROSE 40% GEL 15 GM TUBE PO PRN ×2 (07:51)
[2018-12-07] MEDS ORDERED: GLUCAGON,HUMAN RECOMB 1 MG INJ IM PRN (07:51)
--- NOTE | 2018-12-07 09:12 | PDOC PROGRESS REPORT ---
Subjective Progress Note for:: 12/07/18 Subjective:: 63 year old female with a history of oxygen dependent COPD who began to feel a sensation of chest tightness yesterday along with trouble breathing. She said she felt like she was having a hard time getting a deep breath in. She said as a result she could not lay down flat in bed and sat up on a couch last night to sleep. She is had some intermittent swelling in her legs that has come and gone. Her exercise tolerance has decreased. She said it feels like when she was admitted after some work was being done on her house and she had a COPD exacerbation. She says she has had no changes in her medications recently. She does not recall being around anyone that she knows to be sick. She has not had any fevers or chills. No cough. No sputum production. She began to feel better after about 3-4 nebulizer treatments in the ER. Her blood pressure was substantially elevated in the ER and they put her on a nitroglycerin drip. She says that until that point she did not know that her blood pressure was elevated. She had not been having any headaches or visual disturbances. She says that the chest tightness responded to the nebulizer treatments. She does not have any pain with inspiration. 12/[id number]-vsuy-old female with history of COPD and questionable congestive heart failure admitted for COPD exacerbation with CO2 retention and also blood p ressure was found to be systolic more than 250 in the ER. She was started on nitroglycerin drip in the emergency room the later on medication was switched to p.o. and the latest blood pressure is 156/54. Patient is comfortable in the bed communicating well not in distress. Pulse ox is 94% on 3 L. [id number] female with history of COPD secondary to chronic smoking and congestive heart failure on Lasix at home admitted for COPD exacerbation and CO2 retention. She also came in with very high blood pressures with systolic blood pressure of more than 250 in the ER. Blood pressure today is 154/63. Asymptomatic. Comfortably in the bed communicating well. No acute events in the last 24 hours. Reason For Visit: ACUTE RESPIRATORY FAILURE WITH HYPOXIA AND HYPERCA Physical Exam Vital Signs: Temp Pulse Resp BP Pulse Ox 97.6 F 55 L 20 148/86 H 92 12/07/18 07:31 12/07/18 07:31 12/07/18 07:31 12/07/18 07:31 12/07/18 07:31 Intake & Output 12/06/18 12/07/18 12/08/18 06:59 06:59 06:59 Intake Total 6 1294 Balance 6 1294 Weight 80.3 kg 88.6 kg General appearance: PRESENT: no acute distress, obese Head exam: PRESENT: atraumatic Eye exam: PRESENT: PERRLA Mouth exam: PRESENT: moist, tongue midline Teeth exam: PRESENT: poor dentation Neck exam: ABSENT: carotid bruit, JVD, lymphadenopathy, thyromegaly Respiratory exam: PRESENT: clear to auscultation wilfred. ABSENT: rales, rhonchi, wheezes Cardiovascular exam: PRESENT: RRR. ABSENT: diastolic murmur, rubs, systolic murmur GI/Abdominal exam: PRESENT: normal bowel sounds, soft. ABSENT: distended, guarding, mass, organolmegaly, rebound, tenderness Rectal exam: PRESENT: deferred Extremities exam: PRESENT: full ROM. ABSENT: calf tenderness, clubbing, pedal edema Neurological exam: PRESENT: alert, awake, oriented to person, oriented to place, oriented to time, oriented to situation, CN II-XII grossly intact. ABSENT: motor sensory deficit Psychiatric exam: PRESENT: appropriate affect, normal mood. ABSENT: homicidal ideation, suicidal ideation Results Laboratory Results: 12/07/18 04:35 12/07/18 04:35 12/07/18 12/07/18 12/07/18 04:35 04:35 04:35 WBC 10.6 H RBC 5.42 H Hgb 15.2 Hct 45.9 MCV 85 MCH 28.1 MCHC 33.2 RDW 14.5 H Plt Count 166 Sodium 138.2 Potassium 4.0 Chloride 89 L Carbon Dioxide 39 H Anion Gap 10 BUN 43 H Creatinine 0.87 Est GFR ( Amer) > 60 Est GFR (Non-Af Amer) > 60 Glucose 340 H Calcium 9.5 Magnesium 1.8 Total Bilirubin 0.3 AST 16 ALT 19 Alkaline Phosphatase 79 Total Protein 6.9 Albumin 3.9 12/05/18 12/05/18 12/05/18 15:18 15:18 20:00 Creatine Kinase 38 CK-MB (CK-2) 0.62 Troponin I < 0.012 < 0.012 NT-Pro-B Natriuret Pep 317 Impressions: Chest X-Ray 12/05/18 15:35 IMPRESSION: HEART ENLARGED WITHOUT FAILURE. NO OTHER SIGNIFICANT RADIOGRAPHIC FINDING IN THE CHEST. Assessment and Plan - Diagnosis (1) COPD exacerbation Is this a current diagnosis for this admission?: Yes Plan: We will continue her home O2. We will give her IV Solu-Medrol. We will do Xop enex nebulizer treatments every 4 hours. We will continue her home medications for COPD. 12/06/2018-patient is on home oxygen plan is to continue the oxygen supplementation here on IV Solu-Medrol 125 mg every 8 hours plan was to decrease the dose to 40 mg every 8 hours. Plan to continue Xopenex nebulizations every 4 as needed. pulse today is 94% on 3 L. 12/07/2018-patient has history of COPD she is on 2 L oxygen at home. Pulse ox today is 96% on 3 L. Plan to bring down the oxygen requirements to 2 L on check it again today. She is also on IV Solu-Medrol 40 mg every 8 hours plan to decrease the dose to every 12 hours. And to continue Xopenex nebulization treatments. (2) Hypertensive urgency Is this a current diagnosis for this admission?: Yes Plan: Suspect this is reactive to her bronchospasm. Nothing else was tried in the ER before the nitroglycerin drip, so I am going to put some nitroglycerin paste on her, continue her home medications, with the exception of a small increase in her lisinopril. I am also going to add some as needed hydralazine. We will monitor her response and adjust accordingly. Hopefully this will do well enough that she will not have to go to the ICU on some sort of antihypertensive drip. 12/06/2018 patient came in with hypertensive emergency systolic blood pressure is 256 in the emergency room. She was started on nitroglycerin drip. Most likely secondary to COPD exacerbation and bronchospasm. She was placed back on her home medications. Blood pressure today is 156/54. BNP is 379 admission cardiac enzymes are negative. Plan is to continue the present management. 12/09/2018-hypertensive emergency is resolved blood pressure today is 154/63. Cardiac enzymes are negative. Hypertensive emergency most likely secondary to bronchospasm and COPD exacerbation. (3) Diabetes Is this a current diagnosis for this admission?: No Plan: 12/06/2018-patient has history of type 2 diabetes mellitus latest blood sugars 319 presently on Solu-Medrol 125 mg every 8 hours. To check hemoglobin A1c tomorrow morning. Diet exercise complete medications were discussed and dietary consult was requested. 12/07/2018-patient blood sugar is 249 today on IV Solu-Medrol 40 mg every 8 hours plan to decrease the dose to Every 12 hours and started on insulin sliding scale. Hemoglobin A1c is 8.1. Plan is to continue the present management. (4) Chronic combined systolic and diastolic CHF, NYHA class 2 Is this a current diagnosis for this admission?: No Plan: 12/06/2018-patient has history of combined systolic and diastolic heart failure. The latest test echocardiogram was done in February 2018 indicates left ventricular ejection fraction is 40 to 45% and mild to moderate diastolic dysfunction. Chest x-ray shows cardiomegaly, BNP is 317 patient is euvolemic. 12/07/2018-patient has history of combined systolic and diastolic heart failure. Latest echocardiogram in February 2018 indicates EF of 40 to 45% associated with mild to moderate diastolic dysfunction. Patient is not in for fluid overload and euvolemic. - Time Time Spent with patient: 25-34 minutes Medications reviewed and adjusted accordingly: Yes Anticipated discharge: Home
[2018-12-07] MEDS: LISINOPRIL 10 MG TABLET PO SCH (09:30)
[2018-12-07] MEDS: FUROSEMIDE 20 MG TABLET PO SCH (09:30)
[2018-12-07] MEDS: INSULIN REG, HUMAN 100 UNIT/ML 3 ML VIAL (PYX) SUBCUT SCH ×4 (09:31→21:36)
[2018-12-07] MEDS: FLUTICASONE NASAL SPRAY 50 MCG/SPRY 120 SPRAY/16 GM NASL SCH (09:31)
[2018-12-07] MEDS: TIOTROPIUM BROMIDE DPI 5 CAP/KIT (18 MCG/CAP) IH SCH (09:31)
[2018-12-07] MEDS ORDERED: CARVEDILOL 12.5 MG TABLET PO SCH (10:00)
[2018-12-07] MEDS: CARVEDILOL 6.25 MG TABLET PO SCH (21:36)
[2018-12-07] MEDS ORDERED: AMLODIPINE BESYLATE 5 MG TABLET PO SCH (22:00)
[2018-12-07] MEDS ORDERED: AMLODIPINE BESYLATE 10 MG TABLET PO SCH (22:00)
[2018-12-08] MEDS: LEVALBUTEROL HCL NEB 1.25 MG/3 ML AMPUL NEB SCH ×5 (00:43→15:52)
[2018-12-08] MEDS: NITROGLYCERIN 2% OINTMENT 1 GM PACKET TP SCH ×3 (00:54→12:30)
[2018-12-08] MEDS: HEPARIN SOD (PORCINE) 5,000 UNIT/ML 1 ML SYRINGE SUBCUT SCH ×2 (05:04→15:04)
[2018-12-08 06:40] LABS: HEMATOCRIT 45.1 % (36.0-47.0); HEMOGLOBIN 14.8 g/dL (12.0-15.5); MEAN CORPUSCULAR HGB CONC 32.8 g/dL (32.0-36.0); MEAN CORPUSCULAR VOLUME 85 fl (80-97); PLATELET COUNT 144 10^3/uL (150-450); RED BLOOD COUNT 5.29 10^6/uL (3.72-5.28); RED CELL DISTRIBUTION WIDTH 14.2 % (11.5-14.0); WHITE BLOOD COUNT 9.4 10^3/uL (4.0-10.5)
[2018-12-08 07:03] LABS: ALANINE AMINOTRANSFERASE 27 U/L (9-52); ALBUMIN 3.5 g/dL (3.5-5.0); ALKALINE PHOSPHATASE 76 U/L (38-126); ANION GAP 7 (5-19); ASPARTATE AMINO TRANSFERASE 12 U/L (14-36); BILIRUBIN,DIRECT 0.2 mg/dL (0.0-0.4); BILIRUBIN,TOTAL 0.4 mg/dL (0.2-1.3); BLOOD UREA NITROGEN 38 mg/dL (7-20); CALCIUM 9.9 mg/dL (8.4-10.2); CARBON DIOXIDE 37 mmol/L (22-30); CHLORIDE 95 mmol/L (98-107); GLUCOSE 263 mg/dL (75-110); POTASSIUM 4.1 mmol/L (3.6-5.0); TOTAL PROTEIN 6.2 g/dL (6.3-8.2)
[2018-12-08] MEDS: INSULIN REG, HUMAN 100 UNIT/ML 3 ML VIAL (PYX) SUBCUT SCH ×3 (07:55→16:58)
[2018-12-08] MEDS: FUROSEMIDE 20 MG TABLET PO SCH (08:07)
[2018-12-08] MEDS: TIOTROPIUM BROMIDE DPI 5 CAP/KIT (18 MCG/CAP) IH SCH (09:35)
[2018-12-08] MEDS: CARVEDILOL 6.25 MG TABLET PO SCH (09:35)
[2018-12-08] MEDS: FLUTICASONE NASAL SPRAY 50 MCG/SPRY 120 SPRAY/16 GM NASL SCH (09:35)
[2018-12-08] MEDS: LISINOPRIL 10 MG TABLET PO SCH (09:36)
[2018-12-08] MEDS: METHYLPREDNISOLONE INJ 40 MG/1 ML SDV IV SCH (09:36)
--- NOTE | 2018-12-08 11:01 | PDOC DISCHARGE SUMMARY ---
General - Admit/Disc Date/PCP Admission Date/Primary Care Provider: 12/05/18 17:28 SHIKHA DUGGAN PA-C Discharge Date: 12/08/18 - Discharge Diagnosis (1) COPD exacerbation Is this a current diagnosis for this admission?: Yes Summary: We will continue her home O2. We will give her IV Solu-Medrol. We will do Xopenex nebulizer treatments every 4 hours. We will continue her home medi cations for COPD. 12/06/2018-patient is on home oxygen plan is to continue the oxygen supplementation here on IV Solu-Medrol 125 mg every 8 hours plan was to decrease the dose to 40 mg every 8 hours. Plan to continue Xopenex nebulizations every 4 as needed. pulse today is 94% on 3 L. 12/07/2018-patient has history of COPD she is on 2 L oxygen at home. Pulse ox today is 96% on 3 L. Plan to bring down the oxygen requirements to 2 L on check it again today. She is also on IV Solu-Medrol 40 mg every 8 hours plan to decrease the dose to every 12 hours. And to continue Xopenex nebulization alan tments. 12/08/2018-patient's pulse ox today is 99% on 2 L at baseline. Not in respiratory distress. Chest examination bilateral entry was decreased no wheezing no crepitations. Patient can go home today. (2) Hypertensive urgency Is this a current diagnosis for this admission?: Yes Summary: Suspect this is reactive to her bronchospasm. Nothing else was tried in the ER before the nitroglycerin drip, so I am going to put some nitroglycerin paste on her, continue her home medications, with the exception of a small increase in her lisinopril. I am also going to add some as needed hydralazine. We will monitor her response and adjust accordingly. Hopefully this will do well enough that she will not have to go to the ICU on some sort of antihypertensive drip. 12/06/2018 patient came in with hypertensive emergency systolic blood pressure is 256 in the emergency room. She was started on nitroglycerin drip. Most likely secondary to COPD exacerbation and bronchospasm. She was placed back on her home medications. Blood pressure today is 156/54. BNP is 379 admission cardiac enzymes are negative. Plan is to continue the present management. 12/07/2018-hypertensive emergency is resolved blood pressure today is 154/63. Cardiac enzymes are negative. Hypertensive emergency most likely secondary to bronchospasm and COPD exacerbation. 12/08 2018-patient blood pressure today is 170/57. Prescription was given for amlodipine 10 mg p.o. daily because of bradycardia Coreg was decreased to 6.25 mg p.o. twice daily. Prescriptions were given. Hypertensive urgency most likely secondary to bronchospasm and COPD exacerbation. (3) Diabetes Is this a current diagnosis for this admission?: No Summary: 2018-patient has history of type 2 diabetes mellitus takes metformin at home blood sugar today is 246 hemoglobin A1c is 8.1 as per the patient's request glucometer machine strips and lancets along with alcohol pads given as a prescription. (4) Chronic combined systolic and diastolic CHF, NYHA class 2 Is this a current diagnosis for this admission?: No Summary: 12/06/2018-patient has history of combined systolic and diastolic heart failure. The latest test echocardiogram was done in February 2018 indicates left ventricular ejection fraction is 40 to 45% and mild to moderate diastolic dysfunction. Chest x-ray shows cardiomegaly, BNP is 317 patient is euvolemic. 12/07/2018-patient has history of combined systolic and diastolic heart failure. Latest echocardiogram in February 2018 indicates EF of 40 to 45% associated with mild to moderate diastolic dysfunction. Patient is not in for fluid overload and euvolemic. 2018-patient has history of combined systolic and diastolic heart failure BNP stable plan is to continue the present management at home. - Additional Information Resuscitation Status: Full Code Discharge Diet: Diabetic Discharge Activity: Activity As Tolerated Prescriptions: Amlodipine Besylate [Norvasc 10 mg Tablet] 10 mg PO QHS #30 tablet Carvedilol [Coreg 6.25 mg Tablet] 6.25 mg PO Q12 #60 tablet Home Medications: Lisinopril [Prinivil] 20 mg PO Q12 06/29/18 Furosemide [Lasix 20 mg Tablet] 20 mg PO QAM #30 tablet 06/30/18 Metformin HCl [Metformin HCl ER] 500 mg PO BIDBS 12/05/18 Amlodipine Besylate [Norvasc 10 mg Tablet] 10 mg PO QHS #30 tablet 12/08/18 Carvedilol [Coreg 6.25 mg Tablet] 6.25 mg PO Q12 #60 tablet 12/08/18 Fluticasone Propionate [Flonase Nasal [place] 50 Mcg/[place] 16 gm] 2 spray NASL DAILY spray.pump 12/08/18 Fluticasone/Salmeterol [Fluticasone-Salmeterol 113-14] 1 each IH .BID 12/08/18 Tiotropium [place] [Spiriva Handihaler 5 Cap/Kit (18 Mcg/Cap)] 1 cap IH DAILY kit 12/08/18 History of Present Illness History of Present Illness: REMINGTON SILVA is a 63 year old female 63 year old female with a history of oxygen dependent COPD who began to feel a sensation of chest tightness yesterday along with trouble breathing. She said she felt like she was having a hard time getting a deep breath in. She said as a result she could not lay down flat in bed and sat up on a couch last night to sleep. She is had some intermittent swelling in her legs that has come and gone. Her exercise tolerance has decreased. She said it feels like when she was admitted after some work was being done on her house and she had a COPD exacerbation. She says she has had no changes in her medications recently. She does not recall being around anyone that she knows to be sick. She has not had any fevers or chills. No cough. No sputum production. She began to feel better after about 3-4 nebulizer treatments in the ER. Her blood pressure was substantially elevated in the ER and they put her on a nitroglycerin drip. She says that until that point she did not know that her blood pressure was elevated. She had not been having any headaches or visual disturbances. She says that the chest tightness responded to the nebulizer treatments. She does not have any pain with inspiration. Hospital Course Hospital Course: 3-year-old female admitted for acute on chronic respiratory failure with hypoxia secondary to COPD exacerbation. Also found to have systolic blood pressure more than 250 in the ER. Hypertensive urgency most likely secondary to bronchospasm and COPD exacerbation. No complications during the hospital stay. She was treated with initially to BiPAP then on nasal cannula now the pulse ox are at baseline. Chest x-ray was negative for pneumonia. Patient is not in fluid overload. She is going home today and advised her to be compliant with medications and she is also going to see the primary care physician in 1 week. Physical Exam Vital Signs: Temp Pulse Resp BP Pulse Ox 98.4 F 74 16 159/61 H 90 L 12/08/18 07:14 12/08/18 08:27 12/08/18 08:27 12/08/18 07:14 12/08/18 08:27 Intake & Output 12/07/18 12/08/18 12/09/18 06:59 06:59 06:59 Intake Total 1294 1390 Balance 1294 1390 Weight 88.6 kg 89 kg General appearance: PRESENT: no acute distress, obese Head exam: PRESENT: atraumatic Eye exam: PRESENT: PERRLA Mouth exam: PRESENT: moist, tongue midline Neck exam: ABSENT: carotid bruit, JVD, lymphadenopathy, thyromegaly Respiratory exam: PRESENT: clear to auscultation wilfred. ABSENT: rales, rhonchi, wheezes Cardiovascular exam: PRESENT: RRR. ABSENT: diastolic murmur, rubs, systolic murmur GI/Abdominal exam: PRESENT: normal bowel sounds, soft. ABSENT: distended, guarding, mass, organolmegaly, rebound, tenderness Rectal exam: PRESENT: deferred Extremities exam: PRESENT: full ROM. ABSENT: calf tenderness, clubbing, pedal edema Neurological exam: PRESENT: alert, awake, oriented to person, oriented to place, oriented to time, oriented to situation, CN II-XII grossly intact. ABSENT: motor sensory deficit Psychiatric exam: PRESENT: appropriate affect, normal mood. ABSENT: homicidal ideation, suicidal ideation Results Laboratory Results: 12/08/18 05:47 12/08/18 05:47 12/08/18 12/08/18 12/08/18 05:47 05:47 05:47 WBC 9.4 RBC 5.29 H Hgb 14.8 Hct 45.1 MCV 85 MCH 28.0 MCHC 32.8 RDW 14.2 H Plt Count 144 L Sodium 139.0 Potassium 4.1 Chloride 95 L Carbon Dioxide 37 H Anion Gap 7 BUN 38 H Creatinine 0.72 Est GFR ( Amer) > 60 Est GFR (Non-Af Amer) > 60 Glucose 263 H Calcium 9.9 Magnesium 2.0 Total Bilirubin 0.4 AST 12 L ALT 27 Alkaline Phosphatase 76 Total Protein 6.2 L Albumin 3.5 12/05/18 12/05/18 12/05/18 15:18 15:18 20:00 Creatine Kinase 38 CK-MB (CK-2) 0.62 Troponin I < 0.012 < 0.012 NT-Pro-B Natriuret Pep 317 Impressions: Chest X-Ray 12/05/18 15:35 IMPRESSION: HEART ENLARGED WITHOUT FAILURE. NO OTHER SIGNIFICANT RADIOGRAPHIC FINDING IN THE CHEST. Qualifiers - * PATIENT BEING DISCHARGED WITH ANY OF THE FOLLOWING DIAGNOSIS: No VTE patient discharged on overlapping Therapy?: No Acute Heart Failure Is this a Heart Failure Patient?: No
[2018-12-08 16:24] VITALS: BP 182/67
== END 2018-12-08 17:36 | disposition home or self-care (01) | DRG 189 ==
LOC: ER 14:46 → EH 17:28 → 3W 20:24
PROVIDERS: ADMIT Family Medicine; ATTEND Family Medicine
DX: J96.02 Acute respiratory failure with hypercapnia (principal); J44.1 Chronic obstructive pulmonary disease with (acute) exacerbation; E87.2 Acidosis; I50.42 Chronic combined systolic (congestive) and diastolic (congestive) heart failure; J96.01 Acute respiratory failure with hypoxia; I16.0 Hypertensive urgency; I11.0 Hypertensive heart disease with heart failure; E11.9 Type 2 diabetes mellitus without complications
CPT/HCPCS: 36415; 71045; 80048; 80053; 82550; 82553; 82803; 82962; 83036; 83735; 83880; 84484; 85025; 85027; 93005; 93010; 94640; 96365; 96375; 99291; J0360; J1644; J1815; J1940; J2920; J2930; J3490; J7620

== ENCOUNTER → 2019-04-20 | Outpatient (CLI) | payer MEDICARE ==
--- NOTE | 2019-04-20 09:31 | RADIOLOGY REPORT (SQ) ---
EXAM DESCRIPTION: CT CHEST WITHOUT COMPLETED DATE/TIME: 04/20/2019 9:13 am REASON FOR STUDY: DYSPNEA R06.00 DYSPNEA, UNSPECIFIED COMPARISON: None. TECHNIQUE: CT scan performed of the chest without intravenous contrast. Images reviewed with lung, soft tissue and bone windows. Reconstructed coronal and sagittal MPR images reviewed. All images st ored on PACS. All CT scanners at this facility use dose modulation, iterative reconstruction, and/or weight based d osing when appropriate to reduce radiation dose to as low as reasonably achievable (ALARA). [facility]: Dose Right [facility]: CareDose [facility]: Dose Right [facility]: Teradose 4D [facility]: Smart [employer] RADIATION DOSE: CT Rad equipment meets quality standard of care and radiation dose reduction techniq ues were employed. CTDIvol: 13.5 mGy. DLP: 499 mGy-cm. mGy. LIMITATIONS: No technical limitations. FINDINGS: LUNGS AND PLEURA: Multiple ill-defined alveolar nodules are present scattered throughout t he right middle lobe and bilateral upper lobes, abnormal but nonspecific. In the anterior left upper lobe, a 5 to 7 cm area of alveolar and interstitial infiltrate is present, abnormal but nonspecific. No pleural effusions. No pneumothorax. No worrisome pulmonary nodules. No changes of obstructive d isease. No interstitial increased markings at the lung bases. Chronic atelectasis and scarring at t he lingular apex. HILAR AND MEDIASTINAL STRUCTURES: Single enlarged 2.2 x 1.3 cm precarinal lymph node axial image 23. HEART AND VASCULAR STRUCTURES: Moderate to heavy coronary artery calcification, mild cardiomegaly. N o significant pericardial effusion UPPER ABDOMEN: No significant findings. Limited exam. THYROID AND OTHER SOFT TISSUES: 2.5 cm right lobe thyroid mass. Thyroid ultrasound recommended for f urther characterization BONES: Calcified chronic appearing extruded disc fragment in the rightward spinal canal at T9-10. Th is causes about 50% spinal canal narrowing on axial image 78 and sagittal image 39 HARDWARE: None in the chest. OTHER: No other significant findings. IMPRESSION: Single enlarged precarinal lymph node with nonspecific alveolar findings in the bilatera l upper lobes and right middle lobe. TECHNICAL DOCUMENTATION: JOB ID: [id number] Quality ID # [id number]: Final reports with documentation of one or more dose reduction techniques (e.g., Au tomated exposure control, adjustment of the mA and/or kV according to patient size, use of iterative reconstruction technique) 2010 [employer]- All Rights Reserved Reading location - IP/workstation name: [email or web address]
== END ==
LOC: RAD 08:50
PROVIDERS: ATTEND Registered Nurse
DX: R06.00 Dyspnea, unspecified (principal); R59.0 Localized enlarged lymph nodes
CPT/HCPCS: 71250

== ENCOUNTER → 2019-06-10 | Outpatient (CLI) | payer MEDICARE | LOC: LAB 11:13 | PROVIDERS: ATTEND Nurse Practitioner Family | DX: R30.0 Dysuria (principal) | CPT/HCPCS: 87086; 87088; 87186 ==

== ENCOUNTER → 2020-04-23 | Outpatient (CLI) | payer MEDICARE | LOC: WI 10:48 | PROVIDERS: ATTEND Physician Assistant | DX: Z12.31 Encounter for screening mammogram for malignant neoplasm of breast (principal) | CPT/HCPCS: 77063; 77067 ==

== ENCOUNTER → 2020-07-07 | Outpatient (CLI) | payer MEDICARE ==
--- NOTE | 2020-07-07 13:55 | RADIOLOGY REPORT (SQ) ---
EXAM DESCRIPTION: CT CHEST WITHOUT IMAGES COMPLETED DATE/TIME: 07/07/2020 10:48 am REASON FOR STUDY: R91.8 OTHER NONSPECIFIC ABNORMAL FINDING OF LUNG FIELD R91.8 OTHER NONSPECIFIC AB NORMAL FINDING OF LUNG FIELD COMPARISON: 04/20/2019 TECHNIQUE: CT scan performed of the chest without intravenous contrast. Images reviewed with lung, soft tissue and bone windows. Reconstructed coronal and sagittal MPR images reviewed. All images st ored on PACS. All CT scanners at this facility use dose modulation, iterative reconstruction, and/or weight based d osing when appropriate to reduce radiation dose to as low as reasonably achievable (ALARA). [facility]: Dose Right [facility]: CareDose [facility]: Dose Right [facility]: Teradose 4D [facility]: [employer] RADIATION DOSE: CT Rad equipment meets quality standard of care and radiation dose reduction techniq ues were employed. CTDIvol: 16.8 mGy. DLP: 652 mGy-cm. mGy. LIMITATIONS: No technical limitations. FINDINGS: LUNGS AND PLEURA: No masses, infiltrates, or pneumothorax. No pleural effusions or pleura l calcifications. HILAR AND MEDIASTINAL STRUCTURES: No identified masses or abnormal nodes. No obvious aneurysm. HEART AND VASCULAR STRUCTURES: No aneurysm. No pericardial effusion.Coronary artery calcifications . UPPER ABDOMEN: 3 cm solid lesion in the left kidney on image 65. THYROID AND OTHER SOFT TISSUES: Low-density lesion in the right lobe of the thyroid gland. Consider ultrasound. BONES: No significant finding. HARDWARE: None in the chest. OTHER: No other significant findings. IMPRESSION: 1. 3 cm left renal mass. Consider CT without with contrast. Consider MRI. 2. No acute findings in the chest. 3. Low-density lesion in the right lobe of the thyroid gland. Consider ultrasound. TECHNICAL DOCUMENTATION: JOB ID: [id number] Quality ID # [id number]: Final reports with documentation of one or more dose reduction techniques (e.g., Au tomated exposure control, adjustment of the mA and/or kV according to patient size, use of iterative reconstruction technique) 2010 [employer]- All Rights Reserved Reading location - IP/workstation name: [email or web address]
== END ==
LOC: RAD 10:36
PROVIDERS: ATTEND Registered Nurse
DX: R91.8 Other nonspecific abnormal finding of lung field (principal); N28.89 Other specified disorders of kidney and ureter
CPT/HCPCS: 71250